=== PATIENT | male | born 1940 | race Caucasian/White ===

== ENCOUNTER 2016-08-16 19:07 | Emergency (ER) | payer MEDICARE, BC ==
[2016-08-16 20:24] LABS: HEMATOCRIT 41.7 % (42.0-52.0); HEMOGLOBIN 13.3 gm/dl (14.0-18.0); MEAN CELL VOLUME 94.3 fl (81-97); MEAN CORPUSCULAR HGB CONC 31.9 g/dl (32-36); MEAN PLATELET VOLUME 9.1 fl (7.4-10.4); PLATELET COUNT 182 K/uL (130-400); RED BLOOD COUNT 4.42 M/uL (4.40-5.70); WHITE BLOOD COUNT W/O DIFF 11.6 K/uL (4.2-12.2)
[2016-08-16 20:34] LABS: ANION GAP 7.4 (7-16); BLOOD UREA NITROGEN 31 mg/dL (9-20); CARBON DIOXIDE 26.6 mmol/L (22-30); EST GLOMERULAR FILTRATION RATE > 60 ml/min; GLUCOSE,RANDOM 126 mg/dL (70-110); INR 4.29
[2016-08-16 20:36] LABS: PROTHROMBIN TIME (PATIENT) 48.5 SECONDS (9.5-12.1)
[2016-08-16 20:50] LABS: TROPONIN I < 0.012 ng/mL (0.00-0.034)
[2016-08-16] MEDS: IPRATROPIUM/ALBUTEROL (0.5MG/3MG) NEB INH ONE (21:11)
--- NOTE | 2016-08-16 21:54 | Emergency Department Record ---
History of Present Illness - General Chief Complaint: Cough Stated Complaint: NICOLAS/CHEST CONGESTION/COUGH Time Seen by Provider: 08/16/16 19:47 Source: Patient Mode of Arrival: Ambulatory Limitations: No limitations - History of Present Illness Initial Comments: pt has been sick for 2 weeks and has been to see dr ko. he had a course of zithromax and levaquin. he continues to cough and feels gurgly at times. no fever. his cough is productive and is now clear MD Complaint: Cough, Nasal congestion Onset/Timin -: Week(s) Severity: Mild Consistency: Other Context: Sick contacts Associated Symptoms: Cough, Nasal congestion, Shortness of breath Treatments Prior to Arrival: Antibiotics, "Cold medicine" - Related Data Home Medications Medication Instructions Recorded Confirmed Last Taken Finasteride [Proscar] 5 mg PO DAILY 03/16/14 08/16/16 01/06/16 Potassium Chloride [Klor-Con M20] 20 meq PO DAILY 03/16/14 08/16/16 01/06/16 Tamsulosin HCl [Flomax] 0.4 mg PO DAILY 03/16/14 08/16/16 01/06/16 Warfarin Sodium [Coumadin] 2 mg PO DAILY 03/16/14 08/16/16 01/06/16 Albuterol Sulfate [Proair Hfa] 1 - 2 puff IH .EVERY 4-6 HOURS PRN 09/17/1408/1601/06/16 Ipratropium/Albuterol [Duoneb] 3 ml IH Q4H PRN 10/17/14 08/16/16 01/06/16 Ascorbic Acid [Vitamin C] 500 mg PO DAILY 05/01/15 08/16/16 01/06/16 Amitriptyline HCl 25 mg PO BID 01/07/16 08/16/16 01/06/16 Azithromycin [Azithromycin] 1 tab PO ASDIR 08/16/16 08/16/16 Unknown Cholecalciferol (Vitamin D3) 40 unit PO DAILY 08/16/16 08/16/16 Unknown [Vitamin D3] Cyanocobalamin (Vitamin B-12) 1 tab PO DAILY 08/16/16 08/16/16 Unknown [Vitamin B-12] Diltiazem HCl [Cardizem Cd] 240 mg PO QPM 08/16/16 08/16/16 Unknown Fluticasone Propionate [Flovent 100 mcg IH ASDIR 08/16/16 08/16/16 Unknown Diskus] Furosemide [Lasix] 20 mg PO BID 08/16/16 08/16/16 Unknown Levofloxacin [Levaquin Tab] 1 tab PO ASDIR 08/16/16 08/16/16 Unknown Multivitamin [Daily Multiple 1 each PO DAILY 08/16/16 08/16/16 Unknown Vitamin] Prednisone [Prednisone] 1 tab PO ASDIR 08/16/16 08/16/16 Unknown Previous Rx's Medication Instructions Recorded Benzonatate [Tessalon] 1 cap PO Q8H PRN #10 cap 08/16/16 Allergies Allergy/AdvReac Type Severity Reaction Status Date / Time meperidine HCl [From Demerol] Allergy SWELLING Verified 01/07/16 00:50 (GENERAL) Penicillins Allergy RASH Verified 01/07/16 00:50 codeine AdvReac BODY ACHES Verified 01/07/16 00:50 Tetanus Vaccines and Toxoid AdvReac BODY ACHES Verified 01/07/16 00:50 [Tetanus Vaccines & Toxoid] Travel Screening - Travel/Exposure Within Last 30 Days Have you traveled within the last 30 days?: No - Travel/Exposure Within Last Year Have you traveled outside the [place] in the last year?: No - Additonal Travel Details Have you been exposed to anyone with a communicable illness?: No - Travel Symptoms Symptom Screening: None Review of Systems Reviewed: No additional complaints except as noted below Constitutional: Reports: As per HPI. Denies: Chills, Fever, Malaise, Night sweats, Weakness, Weight change Eyes: Reports: As per HPI. Denies: Eye discharge, Eye pain, Photophobia, Vision change ENT: Reports: As per HPI. Denies: Congestion, Dental pain, Ear pain, Epistaxis , Hearing loss, Throat pain Respiratory: Reports: As per HPI. Denies: Cough, Dyspnea, Hemoptysis, Stridor, Wheezes Cardiovascular: Reports: As per HPI. Denies: Arrhythmia, Chest pain, Dyspnea on exertion, Edema, Murmurs, Orthopnea, Palpitations, Paroxysmal nocturnal dyspnea, Rheumatic Fever, Syncope Endocrine: Reports: As per HPI. Denies: Fatigue, Heat or cold intolerance, Polydipsia, Polyuria Gastrointestinal: Reports: As per HPI. Denies: Abdominal pain, Constipation, Diarrhea, Hematemesis, Hematochezia, Melena, Nausea, Vomiting Genitourinary: Reports: As per HPI. Denies: Dysuria, Frequency, Hematuria, Incontinence, Retention, Testicular pain, Testicular mass, Urgency Musculoskeletal: Reports: As per HPI. Denies: Arthralgia, Back pain, Gout, Joint swelling, Myalgia, Neck pain Skin: Reports: As per HPI. Denies: Bruising, Change in color, Change in hair/ nails, Lesions, Pruritus, Rash Neurological: Reports: As per HPI. Denies: Abnormal gait, Confusion, Headache, Numbness, Paresthesias, Seizure, Tingling, Tremors, Vertigo, Weakness Psychiatric: Reports: As per HPI. Denies: Anxiety, Auditory hallucinations, Depression, Homicidal thoughts, Suicidal thoughts, Visual hallucinations Hematological/Lymphatic: Reports: As per HPI. Denies: Anemia, Blood Clots, Easy bleeding, Easy bruising, Swollen glands Past Medical History - SOCIAL HISTORY Smoking Status: Former smoker Alcohol Use: None Drug Use: None - RESPIRATORY Hx Respiratory Disorders: Yes Hx Bronchitis: Yes Hx COPD: Yes Hx Pneumonia: Yes - CARDIOVASCULAR Hx Cardio Disorders: Yes Hx Abnormal EKG: Yes Hx Cardiac Cath: Yes Hx CHF: Yes Hx Heart Attack: Yes (after his stroke) Hx Hypotension: Yes Hx Irregular Heartbeat: Yes (A fib) Comment:: cardiac stents placed AND CURRENTLY ON COUMADIN - NEURO Hx Neuro Disorders: Yes Hx CVA: Yes (2003) Hx Weakness: Yes (LEFT SIDED WEAKNESS WITH SOME IMPROVEMENT AFTER) Comment:: WALKS WITH CANE - GI Hx GI Disorders: Yes Hx Reflux: Yes Hx of Polyps: Yes (POLYPS BENIGN) Comment:: STATES HAD BX DURING EGD AND HAD BLEED - Hx Genitourinary Disorders: Yes Hx Bladder Problem: Yes (UNABLE TO VOID) Comment:: INTERMITTENT ISSUES WITH INABILITY TO VOID FOR LAST SEVERAL MONTHS - ENDOCRINE Hx Endocrine Disorders: No - MUSCULOSKELETAL Hx Musculoskeletal Disorders: Yes Hx Arthritis: Yes - PSYCH Hx Psych Problems: Yes Hx Anxiety: Yes Hx Depression: Yes - HEMATOLOGY/ONCOLOGY Hx Hematology/Oncology Disorders: Yes Hx Clotting Problems: Yes (TAKES COUMADIN) Hx Blood Transfusions: Yes Hx Blood Transfusion Reaction: No Family Medical History Any Significant Family History?: Yes Hx Alcohol Use: Father, Grandparents Hx Heart Disease: Mother, Brother/Sister Hx Stroke: Father Physical Exam - General General Appearance: Alert, Oriented x3, Cooperative, Mild distress - Head Head exam: Normal inspection - Eye Eye exam: Normal appearance, PERRL, EOMI Pupils: Normal accommodation - ENT ENT exam: Normal exam, Mucous membranes moist, Normal external ear exam, Normal orophraynx Ear exam: Normal external inspection. negative: External canal tenderness Nasal Exam: Normal inspection. negative: Discharge, Sinus tenderness Mouth exam: Normal external inspection, Tongue normal Teeth exam: Normal inspection. negative: Dental caries Throat exam: Normal inspection. negative: Tonsillar erythema, Tonsillar exudate - Neck Neck exam: Normal inspection, Full ROM. negative: Tenderness - Respiratory Respiratory exam: Normal lung sounds bilaterally. negative: Respiratory distress - Cardiovascular Cardiovascular Exam: Regular rate, Normal rhythm, Normal heart sounds - GI/Abdominal GI/Abdominal exam: Soft, Normal bowel sounds. negative: Tenderness - Rectal Rectal exam: Deferred - exam: Deferred - Extremities Extremities exam: Normal inspection, Full ROM, Normal capillary refill. negative: Tenderness - Back Back exam: Reports: Normal inspection, Full ROM. Denies: Muscle spasm, Rash noted, Tenderness - Neurological Neurological exam: Alert, CN II-XII intact, Normal gait, Oriented X3 - Psychiatric Psychiatric exam: Normal affect, Normal mood - Skin Skin exam: Dry, Intact, Normal color, Warm Course Vital Signs 08/16/16 08/16/16 08/16/16 19:25 20:52 21:12 Temperature 97.5 F L Pulse Rate 88 Pulse Rate [ 86 82 Pulse Ox Probe] Respiratory 20 20 28 H Rate Blood Pressure 136/78 125/74 [Left Arm] Pulse Ox 96 95 Medical Decision Making - Management Options MDM Management: No Additional Work-up Planned - Data Complexity MDM Data: Labs Ordered and/or Reviewed, X-Ray Ordered and/or Reviewed - Lab Data Result diagrams: 08/16/16 20:15 08/16/16 20:15 Lab Results 08/16/16 08/16/16 08/16/16 Range/Units 20:15 20:15 20:15 WBC 11.6 (4.2-12.2) K/uL RBC 4.42 (4.40-5.70) M/uL Hgb 13.3 L (14.0-18.0) gm/dl Hct 41.7 L (42.0-52.0) % MCV 94.3 (81-97) fl MCH 30.0 (27-33) pg MCHC 31.9 L (32-36) g/dl RDW 15.0 H (11.5-14.5) % Plt Count 182 (130-400) K/uL MPV 9.1 (7.4-10.4) fl Neutrophils % 83.0 H (47-80) % Band Neutrophils % 0.0 (0-5) % Lymphocytes % 11.0 L (16-45) % Monocytes % 6.0 (0-9) % Eosinophils % 0.0 (0-6) % Basophils % 0.0 (0-6) % PT 48.5 H (9.5-12.1) SECONDS INR 4.29 Sodium 134 L (136-145) mmol/L Potassium 4.5 (3.5-5.1) mmol/L Chloride 100 (98-107) mmol/L Carbon Dioxide 26.6 (22-30) mmol/L Anion Gap 7.4 (7-16) BUN 31 H (9-20) mg/dL Creatinine 1.0 (0.66-1.25) mg/dL Estimated GFR > 60 ml/min Random Glucose 126 H (70-110) mg/dL Calcium 8.3 L (8.5-10.1) mg/dL Troponin I (0.00-0.034) ng/mL NT-Pro-B Natriuret Pep (<450) pg/mL 08/16/16 Range/Units 20:15 WBC (4.2-12.2) K/uL RBC (4.40-5.70) M/uL Hgb (14.0-18.0) gm/dl Hct (42.0-52.0) % MCV (81-97) fl MCH (27-33) pg MCHC (32-36) g/dl RDW (11.5-14.5) % Plt Count (130-400) K/uL MPV (7.4-10.4) fl Neutrophils % (47-80) % Band Neutrophils % (0-5) % Lymphocytes % (16-45) % Monocytes % (0-9) % Eosinophils % (0-6) % Basophils % (0-6) % PT (9.5-12.1) SECONDS INR Sodium (136-145) mmol/L Potassium (3.5-5.1) mmol/L Chloride (98-107) mmol/L Carbon Dioxide (22-30) mmol/L Anion Gap (7-16) BUN (9-20) mg/dL Creatinine (0.66-1.25) mg/dL Estimated GFR ml/min Random Glucose (70-110) mg/dL Calcium (8.5-10.1) mg/dL Troponin I < 0.012 (0.00-0.034) ng/mL NT-Pro-B Natriuret Pep 736.00 H (<450) pg/mL - Radiology Data Radiology results: Report reviewed, Image reviewed Disposition Disposition: Discharge Clinical Impression: Bronchitis, Elevated INR (international normalized ratio) due to prior anticoagulant medication ingestion Disposition: Home, Self-Care Condition: (1) Good Instructions: Acute Bronchitis (ED), Elevated INR (ED) Additional Instructions: follow up with dr ko in the morning. do not take coumadin tonight. check with dr ko in the morning. take care not to fall Prescriptions: Benzonatate [Tessalon] 1 cap PO Q8H PRN #10 cap PRN Reason: Cough Forms: Patient Portal Access
== END 2016-08-16 22:09 | disposition home or self-care (01) ==
LOC: ER 19:07
DX: J20.9 Acute bronchitis, unspecified (principal); R79.1 Abnormal coagulation profile; R06.02 Shortness of breath; I48.91 Unspecified atrial fibrillation; Z79.01 Long term (current) use of anticoagulants; I69.954 Hemiplegia and hemiparesis following unspecified cerebrovascular disease affecting left non-dominant side; I10 Essential (primary) hypertension; J44.9 Chronic obstructive pulmonary disease, unspecified; Z87.891 Personal history of nicotine dependence
CPT/HCPCS: 71020; 80048; 83880; 84484; 85027; 85610; 94640; 99283; 99284

== ENCOUNTER 2016-10-07 13:06 | Emergency (ER) | payer MEDICARE, BC ==
[2016-10-07] MEDS ORDERED: TOPICAL LIDOCAINE W/ EPI 5 ML TOP ONE (13:37)
--- NOTE | 2016-10-07 13:41 | Emergency Department Record ---
History of Present Illness - General Chief Complaint: Laceration(s) Stated Complaint: BACK OF LT HAND LACERATION Time Seen by Provider: 10/07/16 13:37 Source: Patient, Family Mode of Arrival: Ambulatory Limitations: No limitations - History of Present Illness Initial Commments: 75 yo male presents after a fall injuring his left hand. He was moving a heavy urn and tripped falling onto the left hand. He has some left hand pain and some skin tears. No other injuries. No head injury. He is able to move the hand through a full ROM. Onset/Timin -: Hour(s) Extremity Location: Left: Hand Place: Home, Outdoors Context: Accidental, Fall Associated Symptoms: None Treatments Prior to Arrival: Bandage - Steven Coma Scale Eye Response: (4) Open spontaneously Motor Response: (6) Obeys commands Verbal Response: (5) Oriented [place] Total: 15 - Related Data Hx Tetanus Toxoid Vaccination: No (allergy) Home Medications Medication Instructions Recorded Confirmed Last Taken Finasteride [Proscar] 5 mg PO DAILY 03/16/14 10/07/16 01/06/16 Tamsulosin HCl [Flomax] 0.4 mg PO DAILY 03/16/14 10/07/16 01/06/16 Warfarin Sodium [Coumadin] 2 mg PO DAILY 03/16/14 10/07/16 01/06/16 Albuterol Sulfate [Proair Hfa] 1 - 2 puff IH .EVERY 4-6 HOURS PRN 09/17/1410/0701/06/16 Ipratropium/Albuterol [Duoneb] 3 ml IH Q4H PRN 10/17/14 10/07/16 01/06/16 Ascorbic Acid [Vitamin C] 500 mg PO DAILY 05/01/15 10/07/16 01/06/16 Amitriptyline HCl 25 mg PO BID 01/07/16 10/07/16 01/06/16 Cholecalciferol (Vitamin D3) 40 unit PO DAILY 08/16/16 10/07/16 Unknown [Vitamin D3] Cyanocobalamin (Vitamin B-12) 1 tab PO DAILY 08/16/16 10/07/16 Unknown [Vitamin B-12] Diltiazem HCl [Cardizem Cd] 240 mg PO QPM 08/16/16 10/07/16 Unknown Fluticasone Propionate [Flovent 100 mcg IH ASDIR 08/16/16 10/07/16 Unknown Diskus] Furosemide [Lasix] 20 mg PO BID 08/16/16 10/07/16 Unknown Multivitamin [Daily Multiple 1 each PO DAILY 08/16/16 10/07/16 Unknown Vitamin] Prednisone [Prednisone] 1 tab PO ASDIR 08/16/16 10/07/16 Unknown Allergies Allergy/AdvReac Type Severity Reaction Status Date / Time meperidine HCl [From Demerol] Allergy SWELLING Verified 01/07/16 00:50 (GENERAL) Penicillins Allergy RASH Verified 01/07/16 00:50 codeine AdvReac BODY ACHES Verified 01/07/16 00:50 Tetanus Vaccines and Toxoid AdvReac BODY ACHES Verified 01/07/16 00:50 [Tetanus Vaccines & Toxoid] Travel Screening - Travel/Exposure Within Last 30 Days Have you traveled within the last 30 days?: No Review of Systems Constitutional: Denies: Chills, Fever, Malaise, Weakness Eyes: Denies: Eye discharge ENT: Denies: Congestion, Throat pain Respiratory: Denies: Cough Cardiovascular: Denies: Chest pain, Syncope Endocrine: Denies: Fatigue Gastrointestinal: Denies: Abdominal pain, Diarrhea, Nausea, Vomiting Genitourinary: Denies: Dysuria, Frequency, Hematuria Musculoskeletal: Reports: Arthralgia Skin: Reports: As per HPI, Other (skin tear) Neurological: Denies: Headache Psychiatric: Denies: Anxiety Hematological/Lymphatic: Denies: Blood Clots, Easy bleeding, Easy bruising, Swollen glands Past Medical History - SOCIAL HISTORY Smoking Status: Former smoker Alcohol Use: None Drug Use: None - RESPIRATORY Hx Respiratory Disorders: Yes Hx Bronchitis: Yes Hx COPD: Yes Hx Pneumonia: Yes - CARDIOVASCULAR Hx Cardio Disorders: Yes Hx Abnormal EKG: Yes Hx Cardiac Cath: Yes Hx CHF: Yes Hx Heart Attack: Yes (after his stroke) Hx Hypotension: Yes Hx Irregular Heartbeat: Yes (A fib) Comment:: cardiac stents placed AND CURRENTLY ON COUMADIN - NEURO Hx Neuro Disorders: Yes Hx CVA: Yes (2003) Hx Weakness: Yes (LEFT SIDED WEAKNESS WITH SOME IMPROVEMENT AFTER) Comment:: WALKS WITH CANE - GI Hx GI Disorders: Yes Hx Reflux: Yes Hx of Polyps: Yes (POLYPS BENIGN) Comment:: STATES HAD BX DURING EGD AND HAD BLEED - Hx Genitourinary Disorders: Yes Hx Bladder Problem: Yes (UNABLE TO VOID) Comment:: INTERMITTENT ISSUES WITH INABILITY TO VOID FOR LAST SEVERAL MONTHS - ENDOCRINE Hx Endocrine Disorders: No - MUSCULOSKELETAL Hx Musculoskeletal Disorders: Yes Hx Arthritis: Yes - PSYCH Hx Psych Problems: Yes Hx Anxiety: Yes Hx Depression: Yes - HEMATOLOGY/ONCOLOGY Hx Hematology/Oncology Disorders: Yes Hx Clotting Problems: Yes (TAKES COUMADIN) Hx Blood Transfusions: Yes Hx Blood Transfusion Reaction: No Family Medical History Any Significant Family History?: Yes Hx Alcohol Use: Father, Grandparents Hx Heart Disease: Mother, Brother/Sister Hx Stroke: Father Physical Exam - General General Appearance: Alert, Oriented x3, Cooperative, No acute distress Limitations: No limitations - Head Head exam: Atraumatic, Normocephalic, Normal inspection - Eye Eye exam: Normal appearance, PERRL. negative: Conjunctival injection, Periorbital swelling - ENT ENT exam: Normal exam, Mucous membranes moist Ear exam: Normal external inspection Nasal Exam: Normal inspection Mouth exam: Normal external inspection - Neck Neck exam: Normal inspection, Full ROM. negative: Tenderness - Respiratory Respiratory exam: Normal lung sounds bilaterally. negative: Accessory muscle use, Respiratory distress - Cardiovascular Cardiovascular Exam: Regular rate, Normal rhythm, Normal heart sounds Peripheral Pulses: 2+: Radial (L) - GI/Abdominal GI/Abdominal exam: Soft. negative: Tenderness - Rectal Rectal exam: Deferred - exam: Deferred - Extremities Extremities exam: Full ROM, Normal capillary refill, Tenderness. negative: Normal inspection Image of Hand: 1 - skin tear 2 - skin tear - Back Back exam: Denies: CVA tenderness (R), CVA tenderness (L), Tenderness - Neurological Neurological exam: Alert, Oriented X3 - Psychiatric Psychiatric exam: Normal affect, Normal mood. negative: Agitated, Anxious - Skin Skin exam: Dry, Intact, Normal color, Warm Course Vital Signs 10/07/16 13:15 Temperature 98.2 F Pulse Rate [ 82 Pulse Ox Probe] Respiratory 20 Rate Blood Pressure 119/78 [Left Arm] Pulse Ox 96 - Reevaluation(s) Reevaluation #1: The wounds were clean copiously with NS The XR was reviewed by me. No acute displaced fx seen The two skin tears were re-approximated with steristrips with good approximation The hand was dressed We discussed follow up and home care. He is to call Dr Wen this week for a recheck. 10/07/16 14:36 Disposition Disposition: Discharge Clinical Impression: Skin tear Contusion of hand, left Qualifiers: Encounter type: initial encounter Qualified Code(s): S60.222A - Contusion of left hand, initial encounter Disposition: Home, Self-Care Condition: (1) Good Instructions: Skin Tear (ED), Steristrips (ED) Additional Instructions: Call Dr Wen for close follow up this week to evaluate the progress of healing of your skin tears. Return to the ER if you have any concerns about the healing or signs of infection Forms: Patient Portal Access Time of Disposition: 14:38
== END 2016-10-07 15:10 | disposition home or self-care (01) ==
LOC: ER 13:06
DX: S61.412A Laceration without foreign body of left hand, initial encounter (principal); S60.222A Contusion of left hand, initial encounter; W01.0XXA Fall on same level from slipping, tripping and stumbling without subsequent striking against object, initial encounter; Y92.007 Garden or yard of unspecified non-institutional (private) residence as the place of occurrence of the external cause
CPT/HCPCS: 99283

== ENCOUNTER 2016-10-09 10:09 | Emergency (ER) | payer MEDICARE, BC ==
[2016-10-09] MEDS ORDERED: CLINDAMYCIN 150 MG CAP PO ONE (10:45)
--- NOTE | 2016-10-09 10:51 | Emergency Department Record ---
History of Present Illness - General Chief complaint: Extremity Problem Stated complaint: L HAND INFECTION Time Seen by Provider: 10/09/16 10:45 Source: Patient Mode of Arrival: Ambulatory Limitations: No limitations - History of Present Illness Initial comments: 75 yo male presents with a concern about some swelling after an injury. He fell and had skin tears. He had an XR that was negative. His skin tears were cleaned and steri stripped. No fever. No streaking redness. No significant pain. No pus. Mild swelling and redness are his concerns MD Complaint: Extremity swelling Onset/Timin -: Days(s) Location: Left, Hand History of Same: Yes Severity scale (1-10): 8 Quality: Aching Consistency: Constant - Related Data Home Medications Medication Instructions Recorded Confirmed Last Taken Finasteride [Proscar] 5 mg PO DAILY 03/16/14 10/09/16 1 Day Ago ~10/08/16 Tamsulosin HCl [Flomax] 0.4 mg PO DAILY 03/16/14 10/09/16 1 Day Ago ~10/08/16 Warfarin Sodium [Coumadin] 2 mg PO DAILY 03/16/14 10/09/16 1 Day Ago ~10/08/16 Albuterol Sulfate [Proair Hfa] 1 - 2 puff IH .EVERY 4-6 HOURS PRN 09/17/1410/09 1 Day Ago ~10/08/16 Ipratropium/Albuterol [Duoneb] 3 ml IH Q4H PRN 10/17/14 10/09/16 1 Day Ago ~10/08/16 Ascorbic Acid [Vitamin C] 500 mg PO DAILY 05/01/15 10/09/16 1 Day Ago ~10/08/16 Amitriptyline HCl 25 mg PO BID 01/07/16 10/09/16 1 Day Ago ~10/08/16 Cholecalciferol (Vitamin D3) 40 unit PO DAILY 08/16/16 10/09/16 1 Day Ago [Vitamin D3] ~10/08/16 Cyanocobalamin (Vitamin B-12) 1 tab PO DAILY 08/16/16 10/09/16 1 Day Ago [Vitamin B-12] ~10/08/16 Diltiazem HCl [Cardizem Cd] 240 mg PO QPM 08/16/16 10/09/16 1 Day Ago ~10/08/16 Fluticasone Propionate [Flovent 100 mcg IH ASDIR 08/16/16 10/09/16 1 Day Ago Diskus] ~10/08/16 Furosemide [Lasix] 20 mg PO BID 08/16/16 10/09/16 1 Day Ago ~10/08/16 Multivitamin [Daily Multiple 1 each PO DAILY 08/16/16 10/09/16 1 Day Ago Vitamin] ~10/08/16 Prednisone [Prednisone] 1 tab PO ASDIR 08/16/16 10/09/16 1 Day Ago ~10/08/16 Previous Rx's Medication Instructions Recorded Clindamycin HCl [Cleocin HCl] 300 mg PO TID #21 capsule 10/09/16 Allergies Allergy/AdvReac Type Severity Reaction Status Date / Time meperidine HCl [From Demerol] Allergy SWELLING Verified 10/09/16 10:44 (GENERAL) Penicillins Allergy RASH Verified 10/09/16 10:44 codeine AdvReac BODY ACHES Verified 10/09/16 10:44 Tetanus Vaccines and Toxoid AdvReac BODY ACHES Verified 10/09/16 10:44 [Tetanus Vaccines & Toxoid] Travel Screening - Travel/Exposure Within Last 30 Days Have you traveled within the last 30 days?: No - Travel/Exposure Within Last Year Have you traveled outside the [place] in the last year?: No - Additonal Travel Details Have you been exposed to anyone with a communicable illness?: No Review of Systems Constitutional: Denies: Chills, Fever, Weakness ENT: Denies: Congestion, Throat pain Respiratory: Denies: Cough Cardiovascular: Denies: Chest pain, Syncope Endocrine: Denies: Fatigue Gastrointestinal: Denies: Abdominal pain, Diarrhea, Nausea, Vomiting Genitourinary: Denies: Frequency, Hematuria Musculoskeletal: Reports: As per HPI, Arthralgia, Joint swelling Skin: Reports: As per HPI, Change in color Neurological: Denies: Headache Psychiatric: Denies: Anxiety Hematological/Lymphatic: Denies: Blood Clots, Easy bleeding, Easy bruising, Swollen glands Past Medical History - SOCIAL HISTORY Smoking Status: Former smoker - RESPIRATORY Hx Respiratory Disorders: Yes Hx Bronchitis: Yes Hx COPD: Yes Hx Pneumonia: Yes - CARDIOVASCULAR Hx Cardio Disorders: Yes Hx Abnormal EKG: Yes Hx Cardiac Cath: Yes Hx CHF: Yes Hx Heart Attack: Yes (after his stroke) Hx Hypotension: Yes Hx Irregular Heartbeat: Yes (A fib) Comment:: cardiac stents placed AND CURRENTLY ON COUMADIN - NEURO Hx Neuro Disorders: Yes Hx CVA: Yes (2003) Hx Weakness: Yes (LEFT SIDED WEAKNESS WITH SOME IMPROVEMENT AFTER) Comment:: WALKS WITH CANE - GI Hx GI Disorders: Yes Hx Reflux: Yes Hx of Polyps: Yes (POLYPS BENIGN) Comment:: STATES HAD BX DURING EGD AND HAD BLEED - Hx Genitourinary Disorders: Yes Hx Bladder Problem: Yes (UNABLE TO VOID) Comment:: INTERMITTENT ISSUES WITH INABILITY TO VOID FOR LAST SEVERAL MONTHS - ENDOCRINE Hx Endocrine Disorders: No - MUSCULOSKELETAL Hx Musculoskeletal Disorders: Yes Hx Arthritis: Yes - PSYCH Hx Psych Problems: Yes Hx Anxiety: Yes Hx Depression: Yes - HEMATOLOGY/ONCOLOGY Hx Hematology/Oncology Disorders: Yes Hx Clotting Problems: Yes (TAKES COUMADIN) Hx Blood Transfusions: Yes Hx Blood Transfusion Reaction: No Family Medical History Any Significant Family History?: Yes Hx Alcohol Use: Father, Grandparents Hx Heart Disease: Mother, Brother/Sister Hx Stroke: Father Physical Exam - General General Appearance: Alert, Oriented x3, Cooperative, No acute distress Limitations: No limitations - Head Head exam: Normal inspection - Eye Eye exam: Normal appearance, PERRL. negative: Conjunctival injection, Periorbital swelling - ENT ENT exam: Normal exam Ear exam: Normal external inspection Nasal Exam: Normal inspection - Neck Neck exam: Normal inspection - Cardiovascular Cardiovascular Exam: Regular rate, Normal rhythm, Normal heart sounds - Rectal Rectal exam: Deferred - exam: Deferred - Extremities Extremities exam: Full ROM, Normal capillary refill. negative: Normal inspection, Tenderness Image of Hand: 1 - steri strips intact, very mild swelling and very mild erythema with some bruising, full ROM, no streaking erythema, no pus - Neurological Neurological exam: Alert, Oriented X3 - Psychiatric Psychiatric exam: Normal affect, Normal mood - Skin Skin exam: Erythema Course Vital Signs 10/09/16 10:37 Temperature 97.4 F L Pulse Rate 82 Respiratory 20 Rate Blood Pressure 115/69 Pulse Ox 96 - Reevaluation(s) Reevaluation #1: 10/09/16 10:50Mild findings on today's examination may represent early very mild infection Clindamycin provided Disposition Disposition: Discharge Clinical Impression: Cellulitis Qualifiers: Site of cellulitis: extremity Site of cellulitis of extremity: upper extremity Laterality: left Qualified Code(s): L03.114 - Cellulitis of left upper limb Disposition: Home, Self-Care Condition: (1) Good Instructions: Cellulitis (ED) Additional Instructions: Elevate to minimize swelling Followup with Dr Wen this week for a recheck Return if fever, pain, increased swelling or redness Prescriptions: Clindamycin HCl [Cleocin HCl] 300 mg PO TID #21 capsule Forms: Patient Portal Access Time of Disposition: 10:52
== END 2016-10-09 11:09 | disposition home or self-care (01) ==
LOC: ER 10:09
DX: L03.114 Cellulitis of left upper limb (principal)
CPT/HCPCS: 99282

== ENCOUNTER 2017-02-14 10:23 | Emergency (ER) | payer MEDICARE, BC ==
[2017-02-14] MEDS ORDERED: ASPIRIN 81 MG CHEWABLE TABLET PO ONE (10:35)
[2017-02-14] MEDS ORDERED: METHYLPREDNISOLONE PF 125MG/VIAL IVP ONE (10:39)
[2017-02-14] MEDS ORDERED: IPRATROPIUM/ALBUTEROL (0.5MG/3MG) NEB INH ONE (10:39)
--- NOTE | 2017-02-14 10:41 | Emergency Department Record ---
History of Present Illness - General Chief Complaint: Shortness of breath Stated Complaint: NICOLAS Time Seen by Provider: 02/14/17 10:33 Source: Patient, RN notes reviewed Mode of Arrival: Ambulatory - History of Present Illness Initial Comments: sob and cough for couple of days and much worse at 2 am adn the duoneb treatment than didn't help. coughing up yellow sputum Complaint: Shortness of breath - Related Data Home Medications Medication Instructions Recorded Confirmed Last Taken Cilostazol 50 mg PO BID 02/14/17 02/14/17 02/13/17 Potassium Chloride [Klor-Con] 20 meq PO DAILY 02/14/17 02/14/17 02/13/17 Previous Rx's Medication Instructions Recorded Azithromycin [Zithromax] 500 mg PO DAILY #7 tab 02/14/17 Cephalexin [Keflex] 500 mg PO QID #40 cap 02/14/17 Prednisone [Prednisone 10Mg] 10 mg PO ASDIR #30 tab 02/14/17 Allergies Allergy/AdvReac Type Severity Reaction Status Date / Time meperidine HCl [From Demerol] Allergy SWELLING Verified 10/09/16 10:44 (GENERAL) Penicillins Allergy RASH Verified 10/09/16 10:44 codeine AdvReac BODY ACHES Verified 10/09/16 10:44 Tetanus Vaccines and Toxoid AdvReac BODY ACHES Verified 10/09/16 10:44 [Tetanus Vaccines & Toxoid] Past Medical History - SOCIAL HISTORY Smoking Status: Former smoker - RESPIRATORY Hx Respiratory Disorders: Yes Hx Bronchitis: Yes Hx COPD: Yes Hx Pneumonia: Yes - CARDIOVASCULAR Hx Cardio Disorders: Yes Hx Abnormal EKG: Yes Hx Cardiac Cath: Yes Hx CHF: Yes Hx Heart Attack: Yes (after his stroke) Hx Hypotension: Yes Hx Irregular Heartbeat: Yes (A fib) Comment:: cardiac stents placed AND CURRENTLY ON COUMADIN - NEURO Hx Neuro Disorders: Yes Hx CVA: Yes (2003) Hx Weakness: Yes (LEFT SIDED WEAKNESS WITH SOME IMPROVEMENT AFTER) Comment:: WALKS WITH CANE - GI Hx GI Disorders: Yes Hx Reflux: Yes Hx of Polyps: Yes (POLYPS BENIGN) Comment:: STATES HAD BX DURING EGD AND HAD BLEED - Hx Genitourinary Disorders: Yes Hx Bladder Problem: Yes (UNABLE TO VOID) Comment:: INTERMITTENT ISSUES WITH INABILITY TO VOID FOR LAST SEVERAL MONTHS - ENDOCRINE Hx Endocrine Disorders: No - MUSCULOSKELETAL Hx Musculoskeletal Disorders: Yes Hx Arthritis: Yes - PSYCH Hx Psych Problems: Yes Hx Anxiety: Yes Hx Depression: Yes - HEMATOLOGY/ONCOLOGY Hx Hematology/Oncology Disorders: Yes Hx Clotting Problems: Yes (TAKES COUMADIN) Hx Blood Transfusions: Yes Hx Blood Transfusion Reaction: No Family Medical History Hx Alcohol Use: Father, Grandparents Hx Heart Disease: Mother, Brother/Sister Hx Stroke: Father Physical Exam - General General Appearance: Alert, Oriented x3, Cooperative, No acute distress - Head Head exam: Normal inspection - Eye Eye exam: Normal appearance, PERRL Pupils: Normal accommodation - ENT ENT exam: Normal exam, Mucous membranes moist, Normal external ear exam, Normal orophraynx, TM's normal bilaterally Ear exam: Normal external inspection. negative: External canal tenderness Nasal Exam: Normal inspection. negative: Discharge, Sinus tenderness Mouth exam: Normal external inspection, Tongue normal Teeth exam: Normal inspection. negative: Dental caries Throat exam: Normal inspection. negative: Tonsillar erythema, Tonsillar exudate - Neck Neck exam: Normal inspection, Full ROM. negative: Tenderness - Respiratory Respiratory exam: Rales, Wheezes. negative: Respiratory distress - Cardiovascular Cardiovascular Exam: Regular rate, Normal rhythm, Normal heart sounds - GI/Abdominal GI/Abdominal exam: Soft, Normal bowel sounds. negative: Tenderness - Rectal Rectal exam: Deferred - exam: Deferred - Extremities Extremities exam: Normal inspection, Full ROM, Normal capillary refill. negative: Tenderness - Back Back exam: Reports: Normal inspection, Full ROM. Denies: Muscle spasm, Rash noted, Tenderness - Neurological Neurological exam: Alert, Normal gait, Oriented X3, Reflexes normal - Psychiatric Psychiatric exam: Normal affect, Normal mood - Skin Skin exam: Dry, Intact, Normal color, Warm Medical Decision Making - Lab Data Result diagrams: 02/14/17 10:41 02/14/17 10:41 Disposition Clinical Impression: Bronchitis, COPD exacerbation Atrial fibrillation Qualifiers: Atrial fibrillation type: chronic Qualified Code(s): I48.2 - Chronic atrial fibrillation Disposition: Home, Self-Care Condition: (1) Good Instructions: Acute Bronchitis (ED), COPD (Chronic Obstructive Pulmonary Disease) (ED) Additional Instructions: continue home meds and take azithromycin follow up with Dr. Wen tomorrow at 10 :00 am Prescriptions: Azithromycin [Zithromax] 500 mg PO DAILY #7 tab Cephalexin [Keflex] 500 mg PO QID #40 cap Prednisone [Prednisone 10Mg] 10 mg PO ASDIR #30 tab Forms: Patient Portal Access Quality - Quality Measures Quality Measures: N/A - Blood Pressure Screening Does Patient Have Any of the Following: No Blood Pressure Classification: Pre-Hypertensive BP Reading Systolic Measurement: 131 Diastolic Measurement: 68 Screening for High Blood Pressure: < Pre-Hypertensive BP, F/U Documented > [ G8950] Pre-Hypertensive Follow-up Interventions: Referral to alternative/primary care provider.
[2017-02-14] MEDS ORDERED: FUROSEMIDE IV 40MG/4ML VIAL IVP ONE (10:59)
[2017-02-14 11:02] LABS: HEMATOCRIT 42.1 % (42.0-52.0); HEMOGLOBIN 13.7 gm/dl (14.0-18.0); MEAN CELL VOLUME 88.6 fl (81-97); MEAN CORPUSCULAR HEMOGLOBIN 28.8 pg (27-33); MEAN CORPUSCULAR HGB CONC 32.5 g/dl (32-36); MEAN PLATELET VOLUME 9.3 fl (7.4-10.4); PLATELET COUNT 226 K/uL (130-400); RED BLOOD COUNT 4.75 M/uL (4.40-5.70); RED CELL DISTRIBUTION WIDTH 13.3 % (11.5-14.5); WHITE BLOOD COUNT W/O DIFF 7.8 K/uL (4.2-12.2)
[2017-02-14 11:16] LABS: INR 1.97; PARTIAL THROMBOPLASTIN TIME 42.5 SECONDS (24.5-39.1); PROTHROMBIN TIME (PATIENT) 21.4 SECONDS (9.5-12.1)
[2017-02-14 11:17] LABS: BASO % 0.4 % (0-6); EOS % 6.3 % (0-6); GRAN % 66.1 % (47-80); LYMPH % 19.1 % (16-45); MONO % 8.1 % (0-9)
[2017-02-14 11:32] LABS: BLOOD UREA NITROGEN 10 mg/dL (8-23); CKMB 2.3 ng/mL (<6.73); CREATININE 0.9 mg/dL (0.7-1.2); EST GLOMERULAR FILTRATION RATE > 60 mL/min; GLUCOSE,RANDOM 114 mg/dL (74-109); TROPONIN I < 0.30 ng/mL (0.00-0.300)
[2017-02-14] MEDS ORDERED: AZITHROMYCIN 500 MG TABLET PO ONE (12:53)
[2017-02-14] MEDS ORDERED: CEPHALEXIN 500 MG CAPSULE PO STA (12:53)
--- NOTE | 2017-02-14 13:00 | Emergency Department Record ---
History of Present Illness - General Chief Complaint: Shortness of breath Stated Complaint: NICOLAS Time Seen by Provider: 02/14/17 10:33 Source: Patient, RN notes reviewed Mode of Arrival: Ambulatory - History of Present Illness Onset/Timin -: Hour(s) Consistency: Constant Known History Of: COPD, Other Treatments Prior to Arrival: Bronchodilator - Related Data Home Oxygen Therapy: Yes (at night) Home Oxygen Amount: 2 Liters Home Medications Medication Instructions Recorded Confirmed Last Taken Cilostazol 50 mg PO BID 02/14/17 02/14/17 02/13/17 Potassium Chloride [Klor-Con] 20 meq PO DAILY 02/14/17 02/14/17 02/13/17 Previous Rx's Medication Instructions Recorded Azithromycin [Zithromax] 500 mg PO DAILY #7 tab 02/14/17 Cephalexin [Keflex] 500 mg PO QID #40 cap 02/14/17 Prednisone [Prednisone 10Mg] 10 mg PO ASDIR #30 tab 02/14/17 Allergies Allergy/AdvReac Type Severity Reaction Status Date / Time meperidine HCl [From Demerol] Allergy SWELLING Verified 10/09/16 10:44 (GENERAL) Penicillins Allergy RASH Verified 10/09/16 10:44 codeine AdvReac BODY ACHES Verified 10/09/16 10:44 Tetanus Vaccines and Toxoid AdvReac BODY ACHES Verified 10/09/16 10:44 [Tetanus Vaccines & Toxoid] Travel Screening - Travel/Exposure Within Last 30 Days Have you traveled within the last 30 days?: No - Travel/Exposure Within Last Year Have you traveled outside the [place] in the last year?: No - Additonal Travel Details Have you been exposed to anyone with a communicable illness?: No - Travel Symptoms Symptom Screening: None Past Medical History - SOCIAL HISTORY Smoking Status: Former smoker - RESPIRATORY Hx Respiratory Disorders: Yes Hx Bronchitis: Yes Hx COPD: Yes Hx Pneumonia: Yes - CARDIOVASCULAR Hx Cardio Disorders: Yes Hx Abnormal EKG: Yes Hx Cardiac Cath: Yes Hx CHF: Yes Hx Heart Attack: Yes (after his stroke) Hx Hypotension: Yes Hx Irregular Heartbeat: Yes (A fib) Comment:: cardiac stents placed AND CURRENTLY ON COUMADIN - NEURO Hx Neuro Disorders: Yes Hx CVA: Yes (2003) Hx Weakness: Yes (LEFT SIDED WEAKNESS WITH SOME IMPROVEMENT AFTER) Comment:: WALKS WITH CANE - GI Hx GI Disorders: Yes Hx Reflux: Yes Hx of Polyps: Yes (POLYPS BENIGN) Comment:: STATES HAD BX DURING EGD AND HAD BLEED - Hx Genitourinary Disorders: Yes Hx Bladder Problem: Yes (UNABLE TO VOID) Comment:: INTERMITTENT ISSUES WITH INABILITY TO VOID FOR LAST SEVERAL MONTHS - ENDOCRINE Hx Endocrine Disorders: No - MUSCULOSKELETAL Hx Musculoskeletal Disorders: Yes Hx Arthritis: Yes - PSYCH Hx Psych Problems: Yes Hx Anxiety: Yes Hx Depression: Yes - HEMATOLOGY/ONCOLOGY Hx Hematology/Oncology Disorders: Yes Hx Clotting Problems: Yes (TAKES COUMADIN) Hx Blood Transfusions: Yes Hx Blood Transfusion Reaction: No Family Medical History Hx Alcohol Use: Father, Grandparents Hx Heart Disease: Mother, Brother/Sister Hx Stroke: Father Course Vital Signs 02/14/17 02/14/17 02/14/17 10:28 10:40 11:00 Temperature 98.1 F Pulse Rate 94 H 94 H Pulse Rate [ 85 Pulse Ox Probe] Respiratory 20 19 18 Rate Blood Pressure 131/68 Blood Pressure 112/79 [Left Arm] Pulse Ox 96 98 97 - Reevaluation(s) Reevaluation #1: feeling much better and wants to go home 02/14/17 12:55 Medical Decision Making - Lab Data Result diagrams: 02/14/17 10:41 02/14/17 10:41 Lab Results 02/14/17 02/14/17 02/14/17 Range/Units 10:41 10:41 10:41 WBC 7.8 (4.2-12.2) K/uL RBC 4.75 (4.40-5.70) M/uL Hgb 13.7 L (14.0-18.0) gm/dl Hct 42.1 (42.0-52.0) % MCV 88.6 (81-97) fl MCH 28.8 (27-33) pg MCHC 32.5 (32-36) g/dl RDW 13.3 (11.5-14.5) % Plt Count 226 (130-400) K/uL MPV 9.3 (7.4-10.4) fl Gran % 66.1 (47-80) % Neutrophils % Not Reportable Lymphocytes % 19.1 (16-45) % Monocytes % 8.1 (0-9) % Eosinophils % 6.3 H (0-6) % Basophils % 0.4 (0-6) % Lymphocytes Not Reportable Monocytes Not Reportable PT 21.4 H (9.5-12.1) SECONDS INR 1.97 APTT 42.50 H (24.5-39.1) SECONDS Sodium 138 (136-145) mmol/L Potassium 4.2 (3.4-4.5) mmol/L Chloride 100 (98-107) mmol/L Carbon Dioxide 27.0 (22-29) mmol/L Anion Gap 11.0 (7-16) BUN 10 (8-23) mg/dL Creatinine 0.9 (0.7-1.2) mg/dL Estimated GFR > 60 mL/min Random Glucose 114 H (74-109) mg/dL Calcium 9.1 (8.8-10.2) mg/dL CK-MB (CK-2) 2.3 (<6.73) ng/mL Troponin I < 0.30 (0.00-0.300) ng/mL Disposition Clinical Impression: Bronchitis, COPD exacerbation Atrial fibrillation Qualifiers: Atrial fibrillation type: chronic Qualified Code(s): I48.2 - Chronic atrial fibrillation Disposition: Home, Self-Care Condition: (1) Good Instructions: Acute Bronchitis (ED), COPD (Chronic Obstructive Pulmonary Disease) (ED) Additional Instructions: continue home meds and take azithromycin follow up with Dr. Wen tomorrow at 10 :00 am Prescriptions: Azithromycin [Zithromax] 500 mg PO DAILY #7 tab Cephalexin [Keflex] 500 mg PO QID #40 cap Prednisone [Prednisone 10Mg] 10 mg PO ASDIR #30 tab Forms: Patient Portal Access Time of Disposition: 12:59 Quality - Quality Measures Quality Measures: N/A - Blood Pressure Screening Does Patient Have Any of the Following: No Blood Pressure Classification: Pre-Hypertensive BP Reading Systolic Measurement: 131 Diastolic Measurement: 68 Screening for High Blood Pressure: < Pre-Hypertensive BP, F/U Documented > [ G8950] Pre-Hypertensive Follow-up Interventions: Referral to alternative/primary care provider.
--- NOTE | 2017-02-15 15:18 | RADIOLOGY REPORT ---
EXAM: CHEST, TWO VIEWS HISTORY: SHORTNESS OF BREATH. TECHNIQUE: Frontal and lateral views of the chest were obtained. Comparison: 08/16/16 chest. FINDINGS: The heart size is normal. Osteopenia. Multiple old right rib fractures. Calcified granulomata in the left upper lobe. Stable blunting of the right costophrenic angle which likely relates to chronic area of pleural thickening. No pneumothorax. IMPRESSION: NO ACUTE CARDIOPULMONARY PROCESS. STABLE BLUNTING OF THE RIGHT COSTOPHRENIC ANGLE LIKELY RELATING TO AN AREA OF CHRONIC PLEURAL THICKENING. JOB NUMBER: [id number] MTDD
--- NOTE | 2017-02-16 15:41 | Emergency Department Record ---
History of Present Illness - General Chief Complaint: Shortness of breath Stated Complaint: NICOLAS Time Seen by Provider: 02/14/17 10:33 Source: Patient, RN notes reviewed Mode of Arrival: Ambulatory - History of Present Illness Onset/Timin -: Hour(s) Consistency: Constant Known History Of: COPD, Other Treatments Prior to Arrival: Bronchodilator - Related Data Home Oxygen Therapy: Yes (at night) Home Oxygen Amount: 2 Liters Home Medications Medication Instructions Recorded Confirmed Last Taken Cilostazol 50 mg PO BID 02/14/17 02/14/17 02/13/17 Potassium Chloride [Klor-Con] 20 meq PO DAILY 02/14/17 02/14/17 02/13/17 Previous Rx's Medication Instructions Recorded Azithromycin [Zithromax] 500 mg PO DAILY #7 tab 02/14/17 Cephalexin [Keflex] 500 mg PO QID #40 cap 02/14/17 Prednisone [Prednisone 10Mg] 10 mg PO ASDIR #30 tab 02/14/17 Allergies Allergy/AdvReac Type Severity Reaction Status Date / Time meperidine HCl [From Demerol] Allergy SWELLING Verified 10/09/16 10:44 (GENERAL) Penicillins Allergy RASH Verified 10/09/16 10:44 codeine AdvReac BODY ACHES Verified 10/09/16 10:44 Tetanus Vaccines and Toxoid AdvReac BODY ACHES Verified 10/09/16 10:44 [Tetanus Vaccines & Toxoid] Travel Screening - Travel/Exposure Within Last 30 Days Have you traveled within the last 30 days?: No - Travel/Exposure Within Last Year Have you traveled outside the [place] in the last year?: No - Additonal Travel Details Have you been exposed to anyone with a communicable illness?: No - Travel Symptoms Symptom Screening: None Review of Systems Reviewed: No additional complaints except as noted below Constitutional: Reports: As per HPI. Denies: Chills, Fever, Malaise, Night sweats, Weakness, Weight change Eyes: Reports: As per HPI. Denies: Eye discharge, Eye pain, Photophobia, Vision change ENT: Reports: As per HPI, Congestion. Denies: Dental pain, Ear pain, Epistaxis , Hearing loss, Throat pain Respiratory: Reports: As per HPI, Cough, Dyspnea, Wheezes. Denies: Hemoptysis, Stridor Cardiovascular: Reports: As per HPI. Denies: Arrhythmia, Chest pain, Dyspnea on exertion, Edema, Murmurs, Orthopnea, Palpitations, Paroxysmal nocturnal dyspnea, Rheumatic Fever, Syncope Endocrine: Reports: As per HPI. Denies: Fatigue, Heat or cold intolerance, Polydipsia, Polyuria Gastrointestinal: Reports: As per HPI. Denies: Abdominal pain, Constipation, Diarrhea, Hematemesis, Hematochezia, Melena, Nausea, Vomiting Genitourinary: Reports: As per HPI. Denies: Dysuria, Frequency, Hematuria, Incontinence, Retention, Testicular pain, Testicular mass, Urgency Musculoskeletal: Reports: As per HPI. Denies: Arthralgia, Back pain, Gout, Joint swelling, Myalgia, Neck pain Skin: Reports: As per HPI. Denies: Bruising, Change in color, Change in hair/ nails, Lesions, Pruritus, Rash Neurological: Reports: As per HPI. Denies: Abnormal gait, Confusion, Headache, Numbness, Paresthesias, Seizure, Tingling, Tremors, Vertigo, Weakness Psychiatric: Reports: As per HPI. Denies: Anxiety, Auditory hallucinations, Depression, Homicidal thoughts, Suicidal thoughts, Visual hallucinations Hematological/Lymphatic: Reports: As per HPI. Denies: Anemia, Blood Clots, Easy bleeding, Easy bruising, Swollen glands Past Medical History - SOCIAL HISTORY Smoking Status: Former smoker - RESPIRATORY Hx Respiratory Disorders: Yes Hx Bronchitis: Yes Hx COPD: Yes Hx Pneumonia: Yes - CARDIOVASCULAR Hx Cardio Disorders: Yes Hx Abnormal EKG: Yes Hx Cardiac Cath: Yes Hx CHF: Yes Hx Heart Attack: Yes (after his stroke) Hx Hypotension: Yes Hx Irregular Heartbeat: Yes (A fib) Comment:: cardiac stents placed AND CURRENTLY ON COUMADIN - NEURO Hx Neuro Disorders: Yes Hx CVA: Yes (2003) Hx Weakness: Yes (LEFT SIDED WEAKNESS WITH SOME IMPROVEMENT AFTER) Comment:: WALKS WITH CANE - GI Hx GI Disorders: Yes Hx Reflux: Yes Hx of Polyps: Yes (POLYPS BENIGN) Comment:: STATES HAD BX DURING EGD AND HAD BLEED - Hx Genitourinary Disorders: Yes Hx Bladder Problem: Yes (UNABLE TO VOID) Comment:: INTERMITTENT ISSUES WITH INABILITY TO VOID FOR LAST SEVERAL MONTHS - ENDOCRINE Hx Endocrine Disorders: No - MUSCULOSKELETAL Hx Musculoskeletal Disorders: Yes Hx Arthritis: Yes - PSYCH Hx Psych Problems: Yes Hx Anxiety: Yes Hx Depression: Yes - HEMATOLOGY/ONCOLOGY Hx Hematology/Oncology Disorders: Yes Hx Clotting Problems: Yes (TAKES COUMADIN) Hx Blood Transfusions: Yes Hx Blood Transfusion Reaction: No Family Medical History Hx Alcohol Use: Father, Grandparents Hx Heart Disease: Mother, Brother/Sister Hx Stroke: Father Course Vital Signs 02/14/17 02/14/17 02/14/17 10:28 10:40 11:00 Temperature 98.1 F Pulse Rate 94 H 94 H Pulse Rate [ 85 Pulse Ox Probe] Respiratory 20 19 18 Rate Blood Pressure 131/68 Blood Pressure 112/79 [Left Arm] Pulse Ox 96 98 97 02/14/17 02/14/17 02/14/17 11:30 12:00 12:30 Temperature Pulse Rate Pulse Rate [ 90 87 91 H Pulse Ox Probe] Respiratory 16 16 16 Rate Blood Pressure Blood Pressure 126/73 120/72 126/86 [Left Arm] Pulse Ox 97 96 96 02/14/17 02/14/17 13:00 13:30 Temperature 98.2 F Pulse Rate 90 Pulse Rate [ 89 Pulse Ox Probe] Respiratory 16 16 Rate Blood Pressure 133/83 Blood Pressure 133/83 [Left Arm] Pulse Ox 97 96 Medical Decision Making - Lab Data Result diagrams: 02/14/17 10:41 02/14/17 10:41 Lab Results 02/14/17 02/14/17 02/14/17 Range/Units 10:41 10:41 10:41 WBC 7.8 (4.2-12.2) K/uL RBC 4.75 (4.40-5.70) M/uL Hgb 13.7 L (14.0-18.0) gm/dl Hct 42.1 (42.0-52.0) % MCV 88.6 (81-97) fl MCH 28.8 (27-33) pg MCHC 32.5 (32-36) g/dl RDW 13.3 (11.5-14.5) % Plt Count 226 (130-400) K/uL MPV 9.3 (7.4-10.4) fl Gran % 66.1 (47-80) % Neutrophils % Not Reportable Lymphocytes % 19.1 (16-45) % Monocytes % 8.1 (0-9) % Eosinophils % 6.3 H (0-6) % Basophils % 0.4 (0-6) % Lymphocytes Not Reportable Monocytes Not Reportable PT 21.4 H (9.5-12.1) SECONDS INR 1.97 APTT 42.50 H (24.5-39.1) SECONDS Sodium 138 (136-145) mmol/L Potassium 4.2 (3.4-4.5) mmol/L Chloride 100 (98-107) mmol/L Carbon Dioxide 27.0 (22-29) mmol/L Anion Gap 11.0 (7-16) BUN 10 (8-23) mg/dL Creatinine 0.9 (0.7-1.2) mg/dL Estimated GFR > 60 mL/min Random Glucose 114 H (74-109) mg/dL Calcium 9.1 (8.8-10.2) mg/dL CK-MB (CK-2) 2.3 (<6.73) ng/mL Troponin I < 0.30 (0.00-0.300) ng/mL Disposition Clinical Impression: Bronchitis, COPD exacerbation Atrial fibrillation Qualifiers: Atrial fibrillation type: chronic Qualified Code(s): I48.2 - Chronic atrial fibrillation Disposition: Home, Self-Care Condition: (1) Good Instructions: Acute Bronchitis (ED), COPD (Chronic Obstructive Pulmonary Disease) (ED) Additional Instructions: continue home meds and take azithromycin follow up with Dr. Wen tomorrow at 10 :00 am Prescriptions: Azithromycin [Zithromax] 500 mg PO DAILY #7 tab Cephalexin [Keflex] 500 mg PO QID #40 cap Prednisone [Prednisone 10Mg] 10 mg PO ASDIR #30 tab Forms: Patient Portal Access Quality - Quality Measures Quality Measures: N/A - Blood Pressure Screening Does Patient Have Any of the Following: No, Active Dx of HTN Blood Pressure Classification: Pre-Hypertensive BP Reading Systolic Measurement: 133 Diastolic Measurement: 83 Screening for High Blood Pressure: < Pre-Hypertensive BP, F/U Documented > [ G8950] Pre-Hypertensive Follow-up Interventions: Referral to alternative/primary care provider.
== END 2017-02-14 13:32 | disposition home or self-care (01) ==
LOC: ER 10:23
DX: J44.1 Chronic obstructive pulmonary disease with (acute) exacerbation (principal); J20.9 Acute bronchitis, unspecified; J44.0 Chronic obstructive pulmonary disease with (acute) lower respiratory infection; I48.92 Unspecified atrial flutter; I25.2 Old myocardial infarction; Z79.01 Long term (current) use of anticoagulants
CPT/HCPCS: 71020; 80048; 82553; 84484; 85027; 85610; 85730; 93005; 93010; 96374; 96375; 99284; J1940; J2930

== ENCOUNTER 2017-03-03 15:25 | Emergency (ER) | payer MEDICARE, BC ==
[2017-03-03] MEDS ORDERED: METHYLPREDNISOLONE PF 125MG/VIAL IVP ONE (15:33)
[2017-03-03] MEDS ORDERED: IPRATROPIUM/ALBUTEROL (0.5MG/3MG) NEB INH ONE (15:33)
[2017-03-03 15:46] LABS: BASO % 0.2 % (0-6); EOS % 6.1 % (0-6); GRAN % 72.8 % (47-80); HEMATOCRIT 41.1 % (42.0-52.0); HEMOGLOBIN 13.2 gm/dl (14.0-18.0); LYMPH % 11.9 % (16-45); MEAN CELL VOLUME 90.1 fl (81-97); MEAN CORPUSCULAR HEMOGLOBIN 28.9 pg (27-33); MEAN CORPUSCULAR HGB CONC 32.1 g/dl (32-36); MEAN PLATELET VOLUME 8.4 fl (7.4-10.4); PLATELET COUNT 229 K/uL (130-400); RED BLOOD COUNT 4.56 M/uL (4.40-5.70); RED CELL DISTRIBUTION WIDTH 14.2 % (11.5-14.5); WHITE BLOOD COUNT W/O DIFF 8.9 K/uL (4.2-12.2)
--- NOTE | 2017-03-03 15:50 | Emergency Department Record ---
History of Present Illness - General Chief Complaint: Shortness of breath Stated Complaint: COUGH,SOB Time Seen by Provider: 03/03/17 15:33 Source: Patient Mode of Arrival: Ambulatory Limitations: No limitations - History of Present Illness Initial Comments: 76 yo male presents to ED for evaluation of shortness of breath and cough symptoms for several days. Patient denies fevers, chills, or productive cough symptoms. Patient reports that he was seen several days ago by his PCP, started on Keflex which is daughter threw away 2 days ago as the medication "smelled funny". Patient does report wheezing symptoms and a history of COPD as well. Patient reports that his symptoms improve with albuterol at home. MD Complaint: Cough, Shortness of breath Onset/Timin -: Week(s) Severity: Moderate Consistency: Intermittent Improves With: Bronchodilators Worsens With: Coughing Known History Of: COPD Associated Symptoms: Cough - Related Data Home Oxygen Therapy: Yes (at night) Home Oxygen Amount: 2 Liters Previous Rx's Medication Instructions Recorded Azithromycin [Zithromax] 250 mg PO DAILY #6 tab 03/03/17 Prednisone [Prednisone 20Mg] 20 mg PO TID #12 tab 03/03/17 Allergies Allergy/AdvReac Type Severity Reaction Status Date / Time meperidine HCl [From Demerol] Allergy SWELLING Verified 03/03/17 15:34 (GENERAL) Penicillins Allergy RASH Verified 03/03/17 15:34 codeine AdvReac BODY ACHES Verified 03/03/17 15:34 Tetanus Vaccines and Toxoid AdvReac BODY ACHES Verified 03/03/17 15:34 [Tetanus Vaccines & Toxoid] Travel Screening - Travel/Exposure Within Last 30 Days Have you traveled within the last 30 days?: No Review of Systems Constitutional: Denies: Chills, Fever, Malaise, Night sweats Eyes: Denies: Eye discharge, Eye pain ENT: Denies: Congestion, Ear pain, Epistaxis Respiratory: Reports: Cough, Dyspnea, Wheezes Cardiovascular: Reports: Dyspnea on exertion. Denies: Chest pain Endocrine: Denies: Fatigue, Heat or cold intolerance Gastrointestinal: Denies: Abdominal pain, Nausea, Vomiting Genitourinary: Denies: Incontinence, Retention Musculoskeletal: Denies: Arthralgia, Back pain, Gout, Joint swelling Skin: Denies: Bruising, Change in color Neurological: Denies: Abnormal gait, Confusion, Headache, Seizure Psychiatric: Denies: Anxiety Hematological/Lymphatic: Denies: Anemia, Blood Clots Past Medical History - SOCIAL HISTORY Smoking Status: Former smoker Alcohol Use: None Drug Use: None - RESPIRATORY Hx Respiratory Disorders: Yes Hx Bronchitis: Yes Hx COPD: Yes Hx Pneumonia: Yes Comment:: 2L O2 at night - CARDIOVASCULAR Hx Cardio Disorders: Yes Hx Abnormal EKG: Yes Hx Cardiac Cath: Yes Hx CHF: Yes Hx Heart Attack: Yes (after his stroke) Hx Hypotension: Yes Hx Irregular Heartbeat: Yes (A fib) Comment:: cardiac stents placed AND CURRENTLY ON COUMADIN - NEURO Hx Neuro Disorders: Yes Hx CVA: Yes (2003) Hx Weakness: Yes (LEFT SIDED WEAKNESS WITH SOME IMPROVEMENT AFTER) Comment:: WALKS WITH CANE - GI Hx GI Disorders: Yes Hx Reflux: Yes Hx of Polyps: Yes (POLYPS BENIGN) Comment:: STATES HAD BX DURING EGD AND HAD BLEED - Hx Genitourinary Disorders: Yes Hx Bladder Problem: Yes (UNABLE TO VOID) Comment:: INTERMITTENT ISSUES WITH INABILITY TO VOID FOR LAST SEVERAL MONTHS - ENDOCRINE Hx Endocrine Disorders: No - MUSCULOSKELETAL Hx Musculoskeletal Disorders: Yes Hx Arthritis: Yes - PSYCH Hx Psych Problems: Yes Hx Anxiety: Yes Hx Depression: Yes - HEMATOLOGY/ONCOLOGY Hx Hematology/Oncology Disorders: Yes Hx Clotting Problems: Yes (TAKES COUMADIN) Hx Blood Transfusions: Yes Hx Blood Transfusion Reaction: No Family Medical History Any Significant Family History?: Yes Hx Alcohol Use: Father, Grandparents Hx Heart Disease: Mother, Brother/Sister Hx Stroke: Father Physical Exam - General General Appearance: Alert, Oriented x3, Cooperative, Mild distress Limitations: No limitations - Head Head exam: Atraumatic, Normocephalic, Normal inspection Head exam detail: negative: Abrasion, Contusion, Connolly's sign, General tenderness, Hematoma, Laceration - Eye Eye exam: Normal appearance. negative: Conjunctival injection, Periorbital swelling, Periorbital tenderness, Scleral icterus - ENT Ear exam: negative: Auricular hematoma, Auricular trauma Nasal Exam: negative: Active bleeding, Discharge, Dried blood, Foreign body Mouth exam: negative: Drooling, Laceration, Muffled voice, Tongue elevation - Neck Neck exam: Normal inspection. negative: Meningismus, Tenderness - Respiratory Respiratory exam: Decreased breath sounds, Prolonged expiratory, Respiratory distress, Wheezes - Cardiovascular Cardiovascular Exam: Irregular rhythm - GI/Abdominal GI/Abdominal exam: Soft. negative: Rebound, Rigid, Tenderness - Rectal Rectal exam: Deferred - exam: Deferred - Extremities Extremities exam: Normal inspection. negative: Calf tenderness, Pedal edema, Tenderness - Back Back exam: Denies: CVA tenderness (R), CVA tenderness (L) - Neurological Neurological exam: Alert, Normal gait, Oriented X3 - Psychiatric Psychiatric exam: Normal affect, Normal mood - Skin Skin exam: Normal color. negative: Abrasion Type of lesion: negative: abrasion Course Vital Signs 03/03/17 15:31 Temperature 98.1 F Pulse Rate 101 H Respiratory 20 Rate Blood Pressure 129/82 Pulse Ox 95 - Reevaluation(s) Reevaluation #1: 03/03/17 15:48 Patient seen and examined, has mild-moderate wheezes on examination with reduced BS. Will administer duoneb and obtain basic labs CXR for further evaluation and reassess. Patient reports only using oxygen at night for his COPD symptoms. Reevaluation #2: 03/03/17 15:57 EKG: Atrial fibrillation 90 normal axis, irregular R-R intervals No acute ST-T wave changes are present NO change from 02/14/17. Reevaluation #3: 03/03/17 16:07 Labs reviewed and are grossly unremarkable for an acute process. Reevaluation #4: 03/03/17 16:37 CXR: Chronic changes, nothing acute Patient was reassessed, reports that he is feeling much better following Duoneb treatment. Patient was updated on all results, and appears stable for discharge with treatment for his COPD symptoms with Prednisone and Zithromax as directed. Patient agrees with plan as discussed. Medical Decision Making - Lab Data Result diagrams: 03/03/17 15:43 03/03/17 15:43 Disposition Disposition: Discharge Clinical Impression: COPD exacerbation Disposition: Home, Self-Care Condition: (2) Stable Instructions: COPD (Chronic Obstructive Pulmonary Disease) (ED) Additional Instructions: Return to ED if your symptoms worsen or if you have any concerns. Zithromax and Prednisone as directed. Follow-up with your family doctor in 1-3 days as directed. Prescriptions: Azithromycin [Zithromax] 250 mg PO DAILY #6 tab Prednisone [Prednisone 20Mg] 20 mg PO TID #12 tab Forms: Patient Portal Access Time of Disposition: 16:39 Quality - Quality Measures Quality Measures: N/A - Blood Pressure Screening Does Patient Have Any of the Following: No Blood Pressure Classification: Normal BP Reading Systolic Measurement: 119 Diastolic Measurement: 79 Screening for High Blood Pressure: < Normal BP, F/U Not Required > [G8783]
[2017-03-03 16:04] LABS: ALB/GLOB RATIO 1.3 (1.1-1.8); ALBUMIN 3.7 g/dL (4.0-5.0); ALKALINE PHOSPHATASE 81 U/L (40-129); ALT/SGPT 16 U/L (<41); AST/SGOT 13 U/L (10.0-50.0); BLOOD UREA NITROGEN 17 mg/dL (8-23); EST GLOMERULAR FILTRATION RATE > 60 mL/min; GLUCOSE,RANDOM 106 mg/dL (74-109); TOTAL PROTEIN 6.6 g/dL (6.6-8.7)
--- NOTE | 2017-03-05 03:54 | RADIOLOGY REPORT ---
DATE: 03/03/2017. EXAM: CHEST, TWO VIEWS. HISTORY: Dyspnea and productive cough with discolored mucus. COMPARISON: 02/14/2017. TECHNIQUE: Two views of the chest were obtained. FINDINGS: The cardiomediastinal silhouette is stable. There is similar bibasilar scarring or atelectasis. No focal consolidation or pleural effusion. There is calcific granulomata in the left upper lobe. Chronic blunting right lateral CP angle. Chronic-appearing right-sided rib, midclavicular, and scapular fractures. IMPRESSION: STABLE EXAMINATION. CHRONIC OSSEOUS CHANGES. BIBASILAR ATELECTASIS OR SCARRING. PRESUMED PLEURAL THICKENING OR SCARRING IN THE RIGHT LATERAL LUNG BASE. JOB NUMBER: [id number] MTDD
== END 2017-03-03 16:52 | disposition home or self-care (01) ==
LOC: ER 15:25
DX: J44.1 Chronic obstructive pulmonary disease with (acute) exacerbation (principal); R06.02 Shortness of breath; I50.9 Heart failure, unspecified; I25.2 Old myocardial infarction; I69.854 Hemiplegia and hemiparesis following other cerebrovascular disease affecting left non-dominant side; Z99.81 Dependence on supplemental oxygen; Z87.891 Personal history of nicotine dependence; Z79.01 Long term (current) use of anticoagulants
CPT/HCPCS: 71020; 80053; 85025; 93005; 93010; 94640; 96374; 99284; J2930

== ENCOUNTER 2017-06-28 10:06 | Emergency (ER) | payer MEDICARE, BC ==
--- NOTE | 2017-06-28 10:41 | Emergency Department Record ---
History of Present Illness - General Chief Complaint: Cough Stated Complaint: Sinus congestion and cough Time Seen by Provider: 06/28/17 10:25 Source: Patient Mode of Arrival: Ambulatory Limitations: No limitations - History of Present Illness Initial Comments: The patient is here due to a cough, congestion, and nasal drainage for 2 weeks. He denies any Cp, SOB, fever, chills, or SANTOS. MD Complaint: Cough, Nasal congestion, Rhinorrhea Onset/Timin -: Week(s) Severity: Mild - Related Data Previous Rx's Medication Instructions Recorded Doxycycline Monohydrate [Mondoxyne 100 mg PO BID #14 capsule 06/28/17 Nl] Allergies Allergy/AdvReac Type Severity Reaction Status Date / Time meperidine HCl [From Demerol] Allergy SWELLING Verified 06/28/17 10:11 (GENERAL) Penicillins Allergy RASH Verified 06/28/17 10:11 codeine AdvReac BODY ACHES Verified 06/28/17 10:11 Tetanus Vaccines and Toxoid AdvReac BODY ACHES Verified 06/28/17 10:11 [Tetanus Vaccines & Toxoid] Travel Screening - Travel/Exposure Within Last 30 Days Have you traveled within the last 30 days?: No - Travel/Exposure Within Last Year Have you traveled outside the [place] in the last year?: No - Additonal Travel Details Have you been exposed to anyone with a communicable illness?: No - Travel Symptoms Symptom Screening: None Review of Systems Constitutional: Denies: Chills, Fever Eyes: Denies: Eye discharge ENT: Reports: Congestion Respiratory: Reports: Cough. Denies: Dyspnea Past Medical History - SOCIAL HISTORY Smoking Status: Former smoker Alcohol Use: None Drug Use: None - RESPIRATORY Hx Respiratory Disorders: Yes Hx Bronchitis: Yes Hx COPD: Yes Hx Pneumonia: Yes Comment:: 2L O2 at night - CARDIOVASCULAR Hx Cardio Disorders: Yes Hx Abnormal EKG: Yes Hx Cardiac Cath: Yes Hx CHF: Yes Hx Heart Attack: Yes (after his stroke) Hx Hypotension: Yes Hx Irregular Heartbeat: Yes (A fib) Comment:: cardiac stents placed AND CURRENTLY ON COUMADIN - NEURO Hx Neuro Disorders: Yes Hx CVA: Yes (2003) Hx Weakness: Yes (LEFT SIDED WEAKNESS WITH SOME IMPROVEMENT AFTER) Comment:: WALKS WITH CANE - GI Hx GI Disorders: Yes Hx Reflux: Yes Hx of Polyps: Yes (POLYPS BENIGN) Comment:: STATES HAD BX DURING EGD AND HAD BLEED - Hx Genitourinary Disorders: Yes Hx Bladder Problem: Yes (UNABLE TO VOID) Comment:: INTERMITTENT ISSUES WITH INABILITY TO VOID FOR LAST SEVERAL MONTHS - ENDOCRINE Hx Endocrine Disorders: No - MUSCULOSKELETAL Hx Musculoskeletal Disorders: Yes Hx Arthritis: Yes - PSYCH Hx Psych Problems: Yes Hx Anxiety: Yes Hx Depression: Yes - HEMATOLOGY/ONCOLOGY Hx Hematology/Oncology Disorders: Yes Hx Clotting Problems: Yes (TAKES COUMADIN) Hx Blood Transfusions: Yes Hx Blood Transfusion Reaction: No Family Medical History Any Significant Family History?: Yes Hx Alcohol Use: Father, Grandparents Hx Heart Disease: Mother, Brother/Sister Hx Stroke: Father Physical Exam - General General Appearance: Alert, Oriented x3, Cooperative, No acute distress - Head Head exam: Atraumatic, Normocephalic, Normal inspection - Eye Eye exam: Normal appearance, PERRL - ENT ENT exam: Normal exam, Mucous membranes moist, Normal external ear exam, Normal orophraynx, TM's normal bilaterally Throat exam: Normal inspection. negative: Tonsillar erythema, Tonsillar exudate - Neck Neck exam: Normal inspection, Full ROM. negative: Tenderness - Respiratory Respiratory exam: Normal lung sounds bilaterally. negative: Respiratory distress - Cardiovascular Cardiovascular Exam: Regular rate, Normal rhythm, Normal heart sounds - GI/Abdominal GI/Abdominal exam: Soft, Normal bowel sounds. negative: Tenderness - Extremities Extremities exam: Normal inspection, Full ROM, Normal capillary refill. negative: Tenderness - Neurological Neurological exam: Alert, Normal gait. negative: Abnormal gait, Motor sensory deficit Course Vital Signs 06/28/17 10:17 Temperature 98 F Pulse Rate 96 H Respiratory 18 Rate Blood Pressure 107/73 Pulse Ox 96 - Reevaluation(s) Reevaluation #1: I did explain to the patient we will place him on Doxycycline and will have him decrease his Coumadin to 1 mg daily on Sun, Sun, and Sunday. 06/28/17 10:39 Disposition Disposition: Discharge Clinical Impression: Upper respiratory infection, acute Disposition: Home, Self-Care Condition: (2) Stable Instructions: Cold Symptoms (ED) Additional Instructions: Please take the Doxycycline as directed and decrease your Coumadin to 1 mg daily on Sunday, Sunday and Sunday ONLY while you are taking the Doxycycline. Please see your PCP next week for recheck. Return to the ER for any worsening symptoms. Prescriptions: Doxycycline Monohydrate [Mondoxyne Nl] 100 mg PO BID #14 capsule Forms: Patient Portal Access Time of Disposition: 10:41 Quality - Quality Measures Quality Measures: N/A - Blood Pressure Screening View Details: Yes Does Patient Have Any of the Following: No Blood Pressure Classification: Normal BP Reading Systolic Measurement: 107 Diastolic Measurement: 73 Screening for High Blood Pressure: < Normal BP, F/U Not Required > [G8783]
== END 2017-06-28 10:46 | disposition home or self-care (01) ==
LOC: ER 10:06
DX: J06.9 Acute upper respiratory infection, unspecified (principal); I48.91 Unspecified atrial fibrillation; Z87.891 Personal history of nicotine dependence; I50.9 Heart failure, unspecified; I25.2 Old myocardial infarction; Z79.01 Long term (current) use of anticoagulants
CPT/HCPCS: 99282

== ENCOUNTER 2018-03-20 16:58 | Observation (INO) | payer MEDICARE, BC ==
[2018-03-20] MEDS ORDERED: CIPROFLOXACIN LACTATE/D5W 400 MG/200 ML BAG IVPB ONE (17:14)
--- NOTE | 2018-03-20 17:22 | Emergency Department Record ---
History of Present Illness - General Chief complaint: Male Urogenital Problem Stated complaint: CANT URINATE Time Seen by Provider: 03/20/18 17:09 Source: Patient, RN notes reviewed Mode of Arrival: Wheelchair - History of Present Illness Initial comments: [facility] and he has had dysuria for 24 hours and he took tylenol 1 hour prior to coming to ED and he had the shakes in [facility]. Currently he feels better but tired PMH atrial fib and on coumadin , COPD , Onset/Timin -: Days(s) Severity: Moderate Severity scale (1-10): 9 Quality: Burning, Sharp Consistency: Intermittent Improves with: None Worsens with: Urination Recent surgery Reports: Blood in urine, Dysuria, Urinary retention - Related Data Allergies Allergy/AdvReac Type Severity Reaction Status Date / Time latex Allergy RASH Verified 03/20/18 17:00 meperidine HCl [From Demerol] Allergy SWELLING Verified 03/20/18 17:00 (GENERAL) Penicillins Allergy RASH Verified 03/20/18 17:00 codeine AdvReac BODY ACHES Verified 03/20/18 17:00 Tetanus Vaccines and Toxoid AdvReac BODY ACHES Verified 03/20/18 17:00 [Tetanus Vaccines & Toxoid] Travel Screening - Travel/Exposure Within Last 30 Days Have you traveled within the last 30 days?: No - Travel/Exposure Within Last Year Have you traveled outside the [place] in the last year?: No - Additonal Travel Details Have you been exposed to anyone with a communicable illness?: No - Travel Symptoms Symptom Screening: None Review of Systems Reviewed: No additional complaints except as noted below Constitutional: Reports: As per HPI. Denies: Chills, Fever, Malaise, Night sweats, Weakness, Weight change Eyes: Reports: As per HPI. Denies: Eye discharge, Eye pain, Photophobia, Vision change ENT: Reports: As per HPI. Denies: Congestion, Dental pain, Ear pain, Epistaxis , Hearing loss, Throat pain Respiratory: Reports: As per HPI. Denies: Cough, Dyspnea, Hemoptysis, Stridor, Wheezes Cardiovascular: Reports: As per HPI. Denies: Arrhythmia, Chest pain, Dyspnea on exertion, Edema, Murmurs, Orthopnea, Palpitations, Paroxysmal nocturnal dyspnea, Rheumatic Fever, Syncope Endocrine: Reports: As per HPI. Denies: Fatigue, Heat or cold intolerance, Polydipsia, Polyuria Gastrointestinal: Reports: As per HPI. Denies: Abdominal pain, Constipation, Diarrhea, Hematemesis, Hematochezia, Melena, Nausea, Vomiting Genitourinary: Reports: As per HPI. Denies: Dysuria, Frequency, Hematuria, Incontinence, Retention, Testicular pain, Testicular mass, Urgency Musculoskeletal: Reports: As per HPI. Denies: Arthralgia, Back pain, Gout, Joint swelling, Myalgia, Neck pain Skin: Reports: As per HPI. Denies: Bruising, Change in color, Change in hair/ nails, Lesions, Pruritus, Rash Neurological: Reports: As per HPI. Denies: Abnormal gait, Confusion, Headache, Numbness, Paresthesias, Seizure, Tingling, Tremors, Vertigo, Weakness Psychiatric: Reports: As per HPI. Denies: Anxiety, Auditory hallucinations, Depression, Homicidal thoughts, Suicidal thoughts, Visual hallucinations Hematological/Lymphatic: Reports: As per HPI. Denies: Anemia, Blood Clots, Easy bleeding, Easy bruising, Swollen glands Past Medical History - SOCIAL HISTORY Smoking Status: Former smoker Alcohol Use: None Drug Use: None - RESPIRATORY Hx Respiratory Disorders: Yes Hx Bronchitis: Yes Hx COPD: Yes Hx Pneumonia: Yes Comment:: 2L O2 at night - CARDIOVASCULAR Hx Cardio Disorders: Yes Hx Abnormal EKG: Yes Hx Cardiac Cath: Yes Hx CHF: Yes Hx Heart Attack: Yes (after his stroke) Hx Hypotension: Yes Hx Irregular Heartbeat: Yes (A fib) Comment:: cardiac stents placed AND CURRENTLY ON COUMADIN - NEURO Hx Neuro Disorders: Yes Hx CVA: Yes (2003) Hx Weakness: Yes (LEFT SIDED WEAKNESS WITH SOME IMPROVEMENT AFTER) Comment:: WALKS WITH CANE - GI Hx GI Disorders: Yes Hx Reflux: Yes Hx of Polyps: Yes (POLYPS BENIGN) Comment:: STATES HAD BX DURING EGD AND HAD BLEED - Hx Genitourinary Disorders: Yes Hx Bladder Problem: Yes (UNABLE TO VOID) Comment:: INTERMITTENT ISSUES WITH INABILITY TO VOID FOR LAST SEVERAL MONTHS - ENDOCRINE Hx Endocrine Disorders: No - MUSCULOSKELETAL Hx Musculoskeletal Disorders: Yes Hx Arthritis: Yes - PSYCH Hx Psych Problems: Yes Hx Anxiety: Yes Hx Depression: Yes - HEMATOLOGY/ONCOLOGY Hx Hematology/Oncology Disorders: Yes Hx Clotting Problems: Yes (TAKES COUMADIN) Hx Blood Transfusions: Yes Hx Blood Transfusion Reaction: No Family Medical History Any Significant Family History?: Yes Hx Alcohol Use: Father, Grandparents Hx Heart Disease: Mother, Brother/Sister Hx Stroke: Father Physical Exam - General General Appearance: Alert, Oriented x3, Cooperative, No acute distress - Head Head exam: Normal inspection - Eye Eye exam: Normal appearance, PERRL Pupils: Normal accommodation - ENT ENT exam: Normal exam, Mucous membranes moist, Normal external ear exam, Normal orophraynx, TM's normal bilaterally Ear exam: Normal external inspection. negative: External canal tenderness Nasal Exam: Normal inspection. negative: Discharge, Sinus tenderness Mouth exam: Normal external inspection, Tongue normal Teeth exam: Normal inspection. negative: Dental caries Throat exam: Normal inspection. negative: Tonsillar erythema, Tonsillar exudate - Neck Neck exam: Normal inspection, Full ROM. negative: Tenderness - Respiratory Respiratory exam: Normal lung sounds bilaterally. negative: Respiratory distress - Cardiovascular Cardiovascular Exam: Regular rate, Normal rhythm, Normal heart sounds - GI/Abdominal GI/Abdominal exam: Soft, Normal bowel sounds. negative: Tenderness - Rectal Rectal exam: Deferred - exam: Deferred - Extremities Extremities exam: Normal inspection, Full ROM, Normal capillary refill. negative: Tenderness - Back Back exam: Reports: Normal inspection, Full ROM. Denies: Muscle spasm, Rash noted, Tenderness - Neurological Neurological exam: Alert, Normal gait, Oriented X3, Reflexes normal - Psychiatric Psychiatric exam: Normal affect, Normal mood - Skin Skin exam: Dry, Intact, Normal color, Warm Course Vital Signs 03/20/18 17:06 Temperature 98.5 F Pulse Rate 121 H Respiratory 20 Rate Blood Pressure 143/76 Pulse Ox 95 - Reevaluation(s) Reevaluation #1: patient is tremulous and concerned he he has sepsis and will admit to GI 03/20/18 18:29 Reevaluation #2: discussed case with Dr Matson and will admit for IV antibiotics 03/20/18 18:36 Medical Decision Making - Lab Data Result diagrams: 03/20/18 17:25 03/20/18 17:25 Disposition Clinical Impression: Coarse tremors UTI (urinary tract infection) Qualifiers: Urinary tract infection type: acute cystitis Hematuria presence: without hematuria Qualified Code(s): N30.00 - Acute cystitis without hematuria Sepsis Qualifiers: Sepsis type: sepsis due to unspecified organism Qualified Code(s): A41.9 - Sepsis, unspecified organism Decision to Admit: Admit from ER Condition: (2) Stable Forms: Patient Portal Access Time of Disposition: 18:35 Quality - Quality Measures Quality Measures: N/A - Blood Pressure Screening Does Patient Have Any of the Following: No, Active Dx of HTN Blood Pressure Classification: Hypertensive Reading Systolic Measurement: 143 Diastolic Measurement: 76 Screening for High Blood Pressure: Patient Exclusion, Hx of HTN [G9744]
[2018-03-20] MEDS ORDERED: 0.9 % SODIUM CHLORIDE 500ML 500 ML IV SCH (17:30)
[2018-03-20 17:37] LABS: HEMATOCRIT 44.2 % (42.0-52.0); HEMOGLOBIN 14.2 gm/dl (14.0-18.0); MEAN CELL VOLUME 88.4 fl (81-97); MEAN CORPUSCULAR HEMOGLOBIN 28.4 pg (27-33); MEAN CORPUSCULAR HGB CONC 32.1 g/dl (32-36); MEAN PLATELET VOLUME 8.9 fl (7.4-10.4); PLATELET COUNT 248 K/uL (130-400); URINE APPEARANCE SL CLOUDY; URINE BILIRUBIN NEGATIVE (NEGATIVE); URINE BLOOD MODERATE (NEGATIVE); URINE COLOR YELLOW; URINE GLUCOSE (UA) NEGATIVE (NEGATIVE); URINE KETONE NEGATIVE (NEGATIVE); URINE LEUKOCYTE ESTERASE LARGE (NEGATIVE); URINE NITRITE POSITIVE (NEGATIVE); URINE PROTEIN NEGATIVE (NEGATIVE); URINE UROBILINOGEN 0.2 E.U./dL (0.20 - 1.00); WHITE BLOOD COUNT W/O DIFF 12.8 K/uL (4.2-12.2)
[2018-03-20 17:44] LABS: BLOOD UREA NITROGEN 14 mg/dL (8-23); CREATININE 1.2 mg/dL (0.7-1.2); EST GLOMERULAR FILTRATION RATE > 60 mL/min
[2018-03-20 17:47] LABS: GLUCOSE,RANDOM 98 mg/dL (74-109); INR 2.3; PROTHROMBIN TIME (PATIENT) 22.8 SECONDS (9.5-12.1)
[2018-03-20 17:57] LABS: URINE EPITHELIAL CELLS 0 - 2 (FEW)
[2018-03-20 17:58] LABS: URINE BACTERIA 4+
[2018-03-20] MEDS ORDERED: 0.9 % SODIUM CHLORIDE 1000ML 1,000 ML IV PRN (19:38)
[2018-03-20] MEDS ORDERED: IPRATROPIUM/ALBUTEROL (0.5MG/3MG) NEB INH PRN ×2 (19:38)
[2018-03-20] MEDS ORDERED: CIPROFLOXACIN LACTATE/D5W 400 MG/200 ML BAG IVPB SCH (19:38)
[2018-03-20] MEDS ORDERED: ACETAMINOPHEN 500 MG TABLET PO PRN (21:09)
[2018-03-20] MEDS: TAMSULOSIN HCL 0.4 MG CAP.ER.24H PO SCH (21:56)
[2018-03-20] MEDS: CILOSTAZOL 50 MG PO SCH (21:57)
[2018-03-20] MEDS ORDERED: TRAZODONE 50 MG TABLET PO SCH (22:00)
[2018-03-20] MEDS ORDERED: DILTIAZEM 240 MG CAP CR PO SCH (22:00)
[2018-03-20] MEDS ORDERED: AMITRIPTYLINE 25 MG TABLET PO SCH (22:00)
[2018-03-21] MEDS ORDERED: CIPROFLOXACIN LACTATE/D5W 400 MG/200 ML BAG IVPB SCH (06:00)
[2018-03-21 06:57] LABS: INR 2.5; PROTHROMBIN TIME (PATIENT) 24.8 SECONDS (9.5-12.1)
[2018-03-21] MEDS ORDERED: PANTOPRAZOLE SODIUM 40 MG TABLET PO SCH (07:00)
--- NOTE | 2018-03-21 09:13 | History & Physical ---
History of Present Illness - Date of Service Date of Service for History & Physical: 03/21/18 - History of Present Illness Admitting Diagnosis: UTI. sepsis. copd History of Present Illness: Mr. Jason is a 77 y/o male with history of BPH, chronic atrial fibrillation, peripheral artery disease and COPD is here with a one day history of burning and pain with urination. The patient says that his symptoms started yesterday morning and he began to feel somewhat chilly as well. He has a history of BPH and is on Flomax 0.4mg daily and says he urinates several times daily and there has not been any change in urine stream or abdominal distension. On arrival to the ED the patient's vitals were stable but his WBCs showed mild elevation 12.8 and he was mild tachycardia 112 but was afebrile. The patient's UA showed leukocytes + and nitrites +, and preliminary blood cultures had no growth. The patient was admitted for observation and and started on IV Cipro 400mg Q12H. On evaluation this morning the patient is alert,awake, oriented and in no acute distress. He reports feeling much better and no longer has burning with urination. Travel Screening - Travel/Exposure Within Last 30 Days Have you traveled within the last 30 days?: No - Travel/Exposure Within Last Year Have you traveled outside the [place] in the last year?: No - Additonal Travel Details Have you been exposed to anyone with a communicable illness?: No - Travel Symptoms Symptom Screening: None Review of Systems Constitutional: Reports: As per HPI. Denies: Chills, Fever, Malaise, Night sweats, Weakness, Weight change Eyes: Reports: As per HPI. Denies: Eye discharge, Eye pain, Photophobia, Vision change ENT: Reports: As per HPI. Denies: Congestion, Dental pain, Ear pain, Epistaxis , Hearing loss, Throat pain Respiratory: Reports: As per HPI. Denies: Cough, Dyspnea, Hemoptysis, Stridor, Wheezes Cardiovascular: Reports: As per HPI. Denies: Arrhythmia, Chest pain, Dyspnea on exertion, Edema, Murmurs, Orthopnea, Palpitations, Paroxysmal nocturnal dyspnea, Rheumatic Fever, Syncope Endocrine: Reports: As per HPI. Denies: Fatigue, Heat or cold intolerance, Polydipsia, Polyuria Gastrointestinal: Reports: As per HPI. Denies: Abdominal pain, Constipation, Diarrhea, Hematemesis, Hematochezia, Melena, Nausea, Vomiting Genitourinary: Reports: As per HPI. Denies: Dysuria, Frequency, Hematuria, Incontinence, Retention, Testicular pain, Testicular mass, Urgency Musculoskeletal: Reports: As per HPI. Denies: Arthralgia, Back pain, Gout, Joint swelling, Myalgia, Neck pain Skin: Reports: As per HPI. Denies: Bruising, Change in color, Change in hair/ nails, Lesions, Pruritus, Rash Neurological: Reports: As per HPI. Denies: Abnormal gait, Confusion, Headache, Numbness, Paresthesias, Seizure, Tingling, Tremors, Vertigo, Weakness Psychiatric: Reports: As per HPI. Denies: Anxiety, Auditory hallucinations, Depression, Homicidal thoughts, Suicidal thoughts, Visual hallucinations Hematological/Lymphatic: Reports: As per HPI. Denies: Anemia, Blood Clots, Easy bleeding, Easy bruising, Swollen glands Past Medical History - SOCIAL HISTORY Smoking Status: Former smoker Alcohol Use: None Drug Use: None - RESPIRATORY Hx Respiratory Disorders: Yes Hx Bronchitis: Yes Hx COPD: Yes Hx Pneumonia: Yes Comment:: 3L O2 at night - CARDIOVASCULAR Hx Cardio Disorders: Yes Hx Abnormal EKG: Yes Hx Cardiac Cath: Yes Hx CHF: Yes Hx Heart Attack: Yes (after his stroke) Hx Hypotension: Yes Hx Irregular Heartbeat: Yes (A fib) Comment:: cardiac stents placed AND CURRENTLY ON COUMADIN - NEURO Hx Neuro Disorders: Yes Hx CVA: Yes (2003) Hx Weakness: Yes (LEFT SIDED WEAKNESS WITH SOME IMPROVEMENT AFTER) Comment:: WALKS WITH CANE - GI Hx GI Disorders: Yes Hx Reflux: Yes Hx of Polyps: Yes (POLYPS BENIGN) Comment:: STATES HAD BX DURING EGD AND HAD BLEED - Hx Genitourinary Disorders: Yes Hx Bladder Problem: Yes (UNABLE TO VOID) Comment:: INTERMITTENT ISSUES WITH INABILITY TO VOID FOR LAST SEVERAL MONTHS - ENDOCRINE Hx Endocrine Disorders: No - MUSCULOSKELETAL Hx Musculoskeletal Disorders: Yes Hx Arthritis: Yes - PSYCH Hx Psych Problems: Yes Hx Anxiety: Yes Hx Depression: Yes - HEMATOLOGY/ONCOLOGY Hx Hematology/Oncology Disorders: Yes Hx Clotting Problems: Yes (TAKES COUMADIN) Hx Blood Transfusions: Yes Hx Blood Transfusion Reaction: No Family Medical History Any Significant Family History?: Yes Hx Alcohol Use: Father, Grandparents Hx Heart Disease: Mother, Brother/Sister Hx Stroke: Father H&P Meds/Allergies - Allergies Allergies: Allergies Allergy/AdvReac Type Severity Reaction Status Date / Time latex Allergy RASH Verified 03/20/18 17:00 meperidine HCl [From Demerol] Allergy SWELLING Verified 03/20/18 17:00 (GENERAL) Penicillins Allergy RASH Verified 03/20/18 17:00 codeine AdvReac BODY ACHES Verified 03/20/18 17:00 Tetanus Vaccines and Toxoid AdvReac BODY ACHES Verified 03/20/18 17:00 [Tetanus Vaccines & Toxoid] - Home Medications Home Medications Medication Instructions Recorded Confirmed Last Taken Amitriptyline HCl 25 mg PO QHS 03/21/18 03/21/18 Unknown - Active Medications Active Medications: Current Medications Acetaminophen (Tylenol 500mg Tab) 1,000 mg PO Q6H PRN PRN Reason: PAIN - MILD TO MODERATE (1-7) Last Admin: 03/20/18 21:57 Dose: 1,000 mg Albuterol/Ipratropium (Duoneb) 3 ml INH RESP.Q4H PRN PRN Reason: WHEEZING Amitriptyline HCl (Elavil) 25 mg PO QHS [facility] Last Admin: 03/20/18 21:56 Dose: 25 mg Ascorbic Acid (Vitamin C) 500 mg PO DAILY [facility] Cyanocobalamin (Vitamin B-12) 100 mcg PO DAILY [facility] Diltiazem HCl (Cardizem Cd) 240 mg PO QHS [facility] Last Admin: 03/20/18 21:56 Dose: 240 mg Sodium Chloride () 500 mls @ 0 mls/hr IV .Q0M [facility] Last Infusion: 03/20/18 19:50 Dose: Infused Ciprofloxacin Lactate (Cipro) 400 mg in 200 mls @ 200 mls/hr IVPB Q12H [facility] Stop: 03/26/18 06:01 Last Infusion: 03/21/18 06:50 Dose: Infused Sodium Chloride () 1,000 mls @ 50 mls/hr IV .Q20H PRN PRN Reason: LARGE VOLUME IV Last Admin: 03/21/18 05:37 Dose: 50 mls/hr Multivitamins/Minerals (Centrum) 1 tab PO DAILY [facility] Non-Formulary Medication (Cilostazol [Cilostazol]) 50 mg PO BID [facility] Last Admin: 03/20/18 21:57 Dose: Not Given Non-Formulary Medication (Finasteride [Proscar]) 5 mg PO DAILY [facility] Pantoprazole Sodium (Protonix) 40 mg PO DAILYAC [facility] Last Admin: 03/21/18 06:01 Dose: 40 mg Tamsulosin HCl (Flomax) 0.4 mg PO BID [facility] Last Admin: 03/20/18 21:56 Dose: 0.4 mg Trazodone HCl (Desyrel) 50 mg PO QHS [facility] Last Admin: 03/20/18 21:56 Dose: 50 mg Vitamin D (Vitamin D3) 1,000 unit PO DAILY [facility] Warfarin Sodium (Coumadin) 2.5 mg PO DAILY [facility] Physical Exam - Vital Signs Vital Signs: Vital Signs - Last 24 Hrs Temp Pulse Pulse Resp BP BP BP 03/21/18 07:34 98.8 F 87 24 103/47 03/21/18 05:55 70 16 03/21/18 05:44 97.4 F L 71 16 100/55 03/20/18 21:47 74 16 03/20/18 20:32 18 03/20/18 19:46 97.9 F 121 H 20 155/73 03/20/18 19:02 99.1 F 112 H 18 128/79 03/20/18 18:26 99.1 F 112 H 18 128/79 03/20/18 17:06 98.5 F 121 H 20 143/76 Pulse Ox 03/21/18 07:34 98 03/21/18 05:55 98 03/21/18 05:44 98 03/20/18 21:47 93 L 03/20/18 20:32 03/20/18 19:46 97 03/20/18 19:02 98 03/20/18 18:26 98 03/20/18 17:06 95 - General General Appearance: Alert, Oriented x3, Cooperative, No acute distress - Head Head exam: Normal inspection - Eye Eye exam: Normal appearance, PERRL Pupils: Normal accommodation - ENT ENT exam: Normal exam, Mucous membranes moist, Normal external ear exam, Normal orophraynx, TM's normal bilaterally Ear exam: Normal external inspection. negative: External canal tenderness Nasal Exam: Normal inspection. negative: Discharge, Sinus tenderness Mouth exam: Normal external inspection, Tongue normal Teeth exam: Normal inspection. negative: Dental caries Throat exam: Normal inspection. negative: Tonsillar erythema, Tonsillar exudate - Neck Neck exam: Normal inspection, Full ROM. negative: Tenderness - Respiratory Respiratory exam: Normal lung sounds bilaterally. negative: Respiratory distress - Cardiovascular Cardiovascular Exam: Regular rate, Normal rhythm, Normal heart sounds - GI/Abdominal GI/Abdominal exam: Soft, Normal bowel sounds. negative: Tenderness - Rectal Rectal exam: Deferred - exam: Deferred - Extremities Extremities exam: Normal inspection, Full ROM, Normal capillary refill. negative: Tenderness - Back Back exam: Reports: Normal inspection, Full ROM. Denies: Muscle spasm, Rash noted, Tenderness - Neurological Neurological exam: Alert, Normal gait, Oriented X3, Reflexes normal - Psychiatric Psychiatric exam: Normal affect, Normal mood - Skin Skin exam: Dry, Intact, Normal color, Warm Results - Labs Result Diagrams: 03/20/18 17:25 03/20/18 17:25 Labs Last 24 Hours: Laboratory Results - last 24 hr 03/20/18 03/20/18 03/20/18 17:25 17:25 17:25 WBC 12.8 H RBC 5.00 Hgb 14.2 Hct 44.2 MCV 88.4 MCH 28.4 MCHC 32.1 RDW 14.0 Plt Count 248 MPV 8.9 Neutrophils % 84.0 H Eosinophils % Not Reportable Basophils % Not Reportable Lymphocytes 6.0 L Monocytes 9.0 Eosinophil Count 1.0 PT INR Sodium 137 Potassium 3.8 Chloride 97 L Carbon Dioxide 29.0 Anion Gap 11.0 BUN 14 Creatinine 1.2 Estimated GFR > 60 Random Glucose 98 Calcium 9.4 Urine Color Yellow Urine Appearance Sl cloudy Urine pH 6.5 Ur Specific Donie 1.015 Urine Protein Negative Urine Glucose (UA) Negative Urine Ketones Negative Urine Blood Moderate Urine Nitrite Positive H Urine Bilirubin Negative Urine Urobilinogen 0.2 Ur Leukocyte Esterase Large H Urine RBC 10 - 15 Urine WBC 10 - 15 Ur Epithelial Cells 0 - 2 Urine Bacteria 4+ 03/20/18 03/21/18 17:25 06:17 WBC RBC Hgb Hct MCV MCH MCHC RDW Plt Count MPV Neutrophils % Eosinophils % Basophils % Lymphocytes Monocytes Eosinophil Count PT 22.8 H 24.8 H INR 2.3 2.5 Sodium Potassium Chloride Carbon Dioxide Anion Gap BUN Creatinine Estimated GFR Random Glucose Calcium Urine Color Urine Appearance Urine pH Ur Specific Donie Urine Protein Urine Glucose (UA) Urine Ketones Urine Blood Urine Nitrite Urine Bilirubin Urine Urobilinogen Ur Leukocyte Esterase Urine RBC Urine WBC Ur Epithelial Cells Urine Bacteria VTE H&P Assessment - Risk for VTE Risk for VTE: Yes Risk Level: High Risk Assessment Date: 03/21/18 Risk Assessment Time: 09:13 VTE Orders Placed or Will Be Placed: Yes Plan - Inpatient Certification Inpatient Certification: Admit to inpatient care: Based on my medical assessment, after consideration of patient's risk factors (age, co-morbidities and patient presenting symptoms and acuity), I expect that this patient will remain in the hospital greater than or equal to two midnights and that the services needed warrant inpatient care because: Patient Risk Factors: [] Estimated length of stay: [] The patient may reasonably be expected to be discharged or transferred to a hospital within 96 hours after admission to [facility]. Services needed: [] Post hospital care (if known): [] I certify that my determination is in accordance with my understanding of Medicare requirements for reasonable and necessary inpatient services. - Detailed Diagnosis and Plan (1) UTI (urinary tract infection) Current Visit: Yes Status: Acute Qualifiers: Urinary tract infection type: acute cystitis Hematuria presence: without hematuria Qualified Code(s): N30.00 - Acute cystitis without hematuria Base Code: N39.0 - URINARY TRACT INFECTION, SITE NOT SPECIFIED Comment: 03/21/18: - UA + leukocytes, nitrites, WBCs 10-15 - BCX preliminary: no growth, UCX pending - Cipro 400mg Q12H IV, change to PO 500mg Q12H for another 6 days. - Follow up with PCP within 5-7 days with UA. (2) BPH (benign prostatic hyperplasia) Current Visit: Yes Status: Acute Base Code: N40.0 - BENIGN PROSTATIC HYPERPLASIA WITHOUT LOWER URINRY TRACT SYMP Comment: 03/21/18: - resume BID flomax 0.4mg. (3) Chronic atrial fibrillation Current Visit: Yes Status: Acute Base Code: I48.2 - CHRONIC ATRIAL FIBRILLATION Comment: 03/21/18: - no acute changes on cardiac cath lab radiology technologist. Tachycardia resolved. - Cardizem 240mg QHS, anticoagulated on Coumadin. (4) Anticoagulant long-term use Current Visit: Yes Status: Acute Base Code: Z79.01 - INTERMEDIATE (CURRENT) USE OF ANTICOAGULANTS Comment: 03/21/18: - Coumadin daily dosing per pharmacy. - PT/INR: 24.8/2.5 (5) DVT prophylaxis Current Visit: Yes Status: Acute Base Code: [id number] - Comment: 03/21/18: - pt on therapeutic dose of Coumadin for a fib. - dose adjust as per pharmacy. PT/INR monitoring. (6) Full code status Current Visit: Yes Status: Acute Base Code: Z78.9 - OTHER SPECIFIED HEALTH STATUS
[2018-03-21] MEDS: TAMSULOSIN HCL 0.4 MG CAP.ER.24H PO SCH (09:57)
[2018-03-21] MEDS ORDERED: Non-Formulary MISC (Finasteride [Proscar] 5 MG) PO SCH (10:00)
[2018-03-21] MEDS ORDERED: CHOLECALCIFEROL 1,000 UNIT TABLET PO SCH (10:00)
[2018-03-21] MEDS ORDERED: MULTIVITAMINS/MINERALS TABLET PO SCH (10:00)
[2018-03-21] MEDS ORDERED: CYANOCOBALAMIN (VITAMIN B-12) 100 MCG TABLET PO SCH (10:00)
[2018-03-21] MEDS ORDERED: ARNUITY (FLUTICASONE FUROATE) 100MCG INH INH SCH (10:00)
[2018-03-21] MEDS ORDERED: ASCORBIC ACID 500 MG TAB PO SCH (10:00)
[2018-03-21] MEDS ORDERED: WARFARIN 2.5 MG TAB PO SCH (10:00)
--- NOTE | 2018-03-21 11:22 | Discharge Summary ---
Providers Discharge Summary Date: 03/21/18 Date of admission: 03/20/18 19:33 Attending physician: GUANAKITO MATSON Primary care physician: GUANAKITO MATSON Physical Exam - Vital Signs Vital Signs: Vital Signs - Last 24 Hrs Temp Pulse Pulse Resp BP BP BP 03/21/18 07:34 98.8 F 87 24 103/47 03/21/18 05:55 70 16 03/21/18 05:44 97.4 F L 71 16 100/55 03/20/18 21:47 74 16 03/20/18 20:32 18 03/20/18 19:46 97.9 F 121 H 20 155/73 03/20/18 19:02 99.1 F 112 H 18 128/79 03/20/18 18:26 99.1 F 112 H 18 128/79 03/20/18 17:06 98.5 F 121 H 20 143/76 Pulse Ox 03/21/18 07:34 98 03/21/18 05:55 98 03/21/18 05:44 98 03/20/18 21:47 93 L 03/20/18 20:32 03/20/18 19:46 97 03/20/18 19:02 98 03/20/18 18:26 98 03/20/18 17:06 95 - General General Appearance: Alert, Oriented x3, Cooperative, No acute distress - Head Head exam: Normal inspection - Eye Eye exam: Normal appearance, PERRL Pupils: Normal accommodation - ENT ENT exam: Normal exam, Mucous membranes moist, Normal external ear exam, Normal orophraynx, TM's normal bilaterally Ear exam: Normal external inspection. negative: External canal tenderness Nasal Exam: Normal inspection. negative: Discharge, Sinus tenderness Mouth exam: Normal external inspection, Tongue normal Teeth exam: Normal inspection. negative: Dental caries Throat exam: Normal inspection. negative: Tonsillar erythema, Tonsillar exudate - Neck Neck exam: Normal inspection, Full ROM. negative: Tenderness - Respiratory Respiratory exam: Normal lung sounds bilaterally. negative: Respiratory distress - Cardiovascular Cardiovascular Exam: Regular rate, Normal rhythm, Normal heart sounds - GI/Abdominal GI/Abdominal exam: Soft, Normal bowel sounds. negative: Tenderness - Rectal Rectal exam: Deferred - exam: Deferred - Extremities Extremities exam: Normal inspection, Full ROM, Normal capillary refill. negative: Tenderness - Back Back exam: Reports: Normal inspection, Full ROM. Denies: Muscle spasm, Rash noted, Tenderness - Neurological Neurological exam: Alert, Normal gait, Oriented X3, Reflexes normal - Psychiatric Psychiatric exam: Normal affect, Normal mood - Skin Skin exam: Dry, Intact, Normal color, Warm Hospitalization - Hospitalization Admission Diagnosis: UTI. sepsis. copd - Problem List/Discharge Diagnosis (1) UTI (urinary tract infection) Current Visit: Yes Status: Acute Discharge Diagnosis: Urinary tract infection type: acute cystitis Hematuria presence: without hematuria Qualified Code(s): N30.00 - Acute cystitis without hematuria Base Code: N39.0 - URINARY TRACT INFECTION, SITE NOT SPECIFIED Comment: 03/21/18: - UA + leukocytes, nitrites, WBCs 10-15 - BCX preliminary: no growth, UCX pending - Cipro 400mg Q12H IV, change to PO 500mg Q12H for another 6 days. - Follow up with PCP within 5-7 days with UA. (2) BPH (benign prostatic hyperplasia) Current Visit: Yes Status: Acute Base Code: N40.0 - BENIGN PROSTATIC HYPERPLASIA WITHOUT LOWER URINRY TRACT SYMP Comment: 03/21/18: - resume BID flomax 0.4mg. (3) Chronic atrial fibrillation Current Visit: Yes Status: Acute Base Code: I48.2 - CHRONIC ATRIAL FIBRILLATION Comment: 03/21/18: - no acute changes on cardiac tech. Tachycardia resolved. - Cardizem 240mg QHS, anticoagulated on Coumadin. (4) Anticoagulant long-term use Current Visit: Yes Status: Acute Base Code: Z79.01 - MATTRESS WEAVER (CURRENT) USE OF ANTICOAGULANTS Comment: 03/21/18: - Coumadin daily dosing per pharmacy. - PT/INR: 24.8/2.5 (5) DVT prophylaxis Current Visit: Yes Status: Acute Base Code: [id number] - Comment: 03/21/18: - pt on therapeutic dose of Coumadin for a fib. - dose adjust as per pharmacy. PT/INR monitoring. (6) Full code status Current Visit: Yes Status: Acute Base Code: Z78.9 - OTHER SPECIFIED HEALTH STATUS - Hospitalization Course Abnormal Labs: Abnormal Lab Results 03/20/18 03/20/18 03/20/18 Range/Units 17:25 17:25 17:25 WBC 12.8 H (4.2-12.2) K/uL Neutrophils % 84.0 H (47-80) % Lymphocytes 6.0 L (16-45) % PT (9.5-12.1) SECONDS Chloride 97 L (98-107) mmol/L Urine Nitrite Positive H (NEGATIVE) Ur Leukocyte Esterase Large H (NEGATIVE) 03/20/18 03/21/18 Range/Units 17:25 06:17 WBC (4.2-12.2) K/uL Neutrophils % (47-80) % Lymphocytes (16-45) % PT 22.8 H 24.8 H (9.5-12.1) SECONDS Chloride (98-107) mmol/L Urine Nitrite (NEGATIVE) Ur Leukocyte Esterase (NEGATIVE) Condition at Discharge: (2) Stable Discharge Medications - Discharge Medications Prescriptions: Ciprofloxacin HCl [Cipro] 500 mg PO Q12HR #12 tablet Home Medications: Ambulatory Orders Albuterol Sulfate [Proair Hfa] 1 - 2 puff IH .EVERY 4-6 HOURS PRN 09/17/14 [ Last Taken 03/20/18] Ascorbic Acid [Vitamin C] 500 mg PO DAILY 05/01/15 [Last Taken 03/20/18] Cholecalciferol (Vitamin D3) [Vitamin D3] 40 unit PO DAILY 08/16/16 [Last Taken 03/20/18] Cyanocobalamin (Vitamin B-12) [Vitamin B-12] 1 tab PO DAILY 08/16/16 [Last Taken 03/20/18] Multivitamin [Daily Multiple Vitamin] 1 each PO DAILY 08/16/16 [Last Taken 03/20] Warfarin Sodium 2.5 mg PO DAILY #30 tab 03/07/18 [Last Taken 03/20/18] Amitriptyline HCl 25 mg PO QHS 03/21/18 [Last Taken Unknown] Ciprofloxacin HCl [Cipro] 500 mg PO Q12HR #12 tablet 03/21/18 [Last Taken Unknown] Discharge Plan - Discharge Instructions Activity at Discharge: Resume Usual Activities As Tolerated Diet at Discharge: Low Fat, Low Cholesterol, Low Salt Diet Additional Instructions: Continue to take the antibiotics (Cipro 500mg) prescribed twice daily for the next 6 days. Follow up with Dr. Matson within 5-7 days of discharge. If you have return of symptoms please return to the ED. Quality Measures - Quality Measures Quality Measures: Atrial Fibrillation & Atrial Flutter: Chronic Anticoagulation Therapy, Advance Directives, Documentation of Current Medications in Medical Record, Elder Maltreatment Screen and Follow-Up Plan, Screening for High Blood Pressure and F/U Documented - Current Medications Quality Measure: Measure #130: Documentation of Current Medications Documentation of Current Medications: <Current Medications Documented/Reviewed> [[id number]] - Blood Pressure Screening Quality Measure: Screening for High Blood Pressure and Follow-Up Documented Does Patient Have Any of the Following: No Blood Pressure Classification: Pre-Hypertensive BP Reading Systolic Measurement: 128 Diastolic Measurement: 79 Screening for High Blood Pressure: < Pre-Hypertensive BP, F/U Documented > [ G8950] Pre-Hypertensive Follow-up Interventions: Follow-up with rescreen every year. - Atrial Fibrillation and Atrial Flutter Quality Measure: Atrial Fibrillation & Atrial Flutter: Chronic Anticoagulation Therapy Does Patient Have Any of the Following: No CHADS2 Risk Stratification: Prior Stroke/TIA or Systemic Embolism, Age 75 or Greater, Heart Failure or Impaired LVSF Risk Stratification Summary: One or more high risk factors OR more than one moderate risk factor exists. [G8972] Anticoagulation Therapy: <Oral anticoagulant Prescribed> [G8967] - Advance Directives Quality Measure: Measure #47: Care Plan Advance Directives Established: No Advance Directives Information Provided To Patient: Declined Advance Directives on File: No Living Will: Yes Power of Orthotic/Prosthetic Practitioner: Yes (step daughter) Power of Orthotic/Prosthetic Practitioner Name: Lilian Rowe Advance Care Planning: <Care Plan/Decision Maker Documented; Discussed & Documented> [[id number]] - Elder Abuse Suspicion Index Screening: Elder Abuse Suspicion Index Screening Rely on people for bathing, dressing, shopping, banking, etc: Yes Prevented from getting food, clothes, medication, etc: No Made to feel shamed or threatened by someone: No Forced to sign papers or use money against will: No Feel afraid, touched in ways not wanted or hurt physically: No Poor eye contact, withdrawn, malnourished, cuts or bruises: No Screening Result: Negative result EASI Reference Information: Lary CANO, Wendy Jimenez, Henna Chapa, Joe Arrieta.Development and validation of a tool to assist physicians identification of elder abuse: The Elder Abuse Suspicion Index (EASI ). Journal of Elder Abuse and Neglect, 2008; 20 (3): 276-300. - Elder Maltreatment Screen Quality Measures: Elder Maltreatment Screen and Follow-Up Plan Elder Maltreatment Screen: <Negative, No Follow-Up Plan Required> [G8734]
[2018-03-21] MEDS: CILOSTAZOL 50 MG PO SCH (14:04)
== END 2018-03-21 13:41 | disposition home or self-care (01) ==
LOC: ER 16:58 → MEDSURG 19:33 → INTOOBSV 19:33
PROVIDERS: ADMIT Internal Medicine; ATTEND Internal Medicine
DX: N30.00 Acute cystitis without hematuria (principal); A41.9 Sepsis, unspecified organism; G25.2 Other specified forms of tremor; J44.9 Chronic obstructive pulmonary disease, unspecified; I48.91 Unspecified atrial fibrillation; Z79.01 Long term (current) use of anticoagulants; N40.0 Benign prostatic hyperplasia without lower urinary tract symptoms; I73.9 Peripheral vascular disease, unspecified; R30.0 Dysuria; I95.9 Hypotension, unspecified; M19.90 Unspecified osteoarthritis, unspecified site; K21.9 Gastro-esophageal reflux disease without esophagitis; Z95.5 Presence of coronary angioplasty implant and graft; Z86.73 Personal history of transient ischemic attack (TIA), and cerebral infarction without residual deficits; Z87.891 Personal history of nicotine dependence
CPT/HCPCS: 80048; 81001; 85027; 85610; 94760; 96361; 96365; 99220; 99285; J7040

== ENCOUNTER 2018-08-15 16:59 | Observation (INO) | payer MEDICARE, BC ==
--- NOTE | 2018-08-15 17:38 | Emergency Department Record ---
History of Present Illness - General Chief Complaint: Fall Injury Stated Complaint: FALL INJURY Time Seen by Provider: 08/15/18 17:03 Source: Patient Mode of Arrival: Ambulatory Limitations: No limitations - History of Present Illness Initial Comments: pt fell and hit his head and had a loc. he is on coumadin. he denies any other injury MD Complaint: Fall Onset/Timin -: Hour(s) When Fall Occurred: 4-6 hours [employer] Fall Witnessed: No Place Fall Occurred: Home Loss of Consciousness: Yes Prolonged Down Time?: No Symptoms Prior to Fall: None Location: Head Severity: Moderate Quality: Aching Context: Tripped/slipped Associated Symptoms: Confusion - Steven Coma Scale Eye Response: (4) Open spontaneously Motor Response: (6) Obeys commands Verbal Response: (5) Oriented [place] Total: 15 - Related Data Allergies Allergy/AdvReac Type Severity Reaction Status Date / Time latex Allergy RASH Unverified 08/08/18 10:08 meperidine HCl [From Demerol] Allergy SWELLING Unverified 08/08/18 10:08 (GENERAL) Penicillins Allergy RASH Unverified 08/08/18 10:08 codeine AdvReac BODY ACHES Unverified 08/08/18 10:08 Tetanus Vaccines and Toxoid AdvReac BODY ACHES Unverified 08/08/18 10:08 [Tetanus Vaccines & Toxoid] Review of Systems Reviewed: No additional complaints except as noted below Constitutional: Reports: As per HPI. Denies: Chills, Fever, Malaise, Night sweats, Weakness, Weight change Eyes: Reports: As per HPI. Denies: Eye discharge, Eye pain, Photophobia, Vision change ENT: Reports: As per HPI. Denies: Congestion, Dental pain, Ear pain, Epistaxis , Hearing loss, Throat pain Respiratory: Reports: As per HPI. Denies: Cough, Dyspnea, Hemoptysis, Stridor, Wheezes Cardiovascular: Reports: As per HPI. Denies: Arrhythmia, Chest pain, Dyspnea on exertion, Edema, Murmurs, Orthopnea, Palpitations, Paroxysmal nocturnal dyspnea, Rheumatic Fever, Syncope Endocrine: Reports: As per HPI. Denies: Fatigue, Heat or cold intolerance, Polydipsia, Polyuria Gastrointestinal: Reports: As per HPI. Denies: Abdominal pain, Constipation, Diarrhea, Hematemesis, Hematochezia, Melena, Nausea, Vomiting Genitourinary: Reports: As per HPI. Denies: Dysuria, Frequency, Hematuria, Incontinence, Retention, Testicular pain, Testicular mass, Urgency Musculoskeletal: Reports: As per HPI. Denies: Arthralgia, Back pain, Gout, Joint swelling, Myalgia, Neck pain Skin: Reports: As per HPI. Denies: Bruising, Change in color, Change in hair/ nails, Lesions, Pruritus, Rash Neurological: Reports: As per HPI. Denies: Abnormal gait, Confusion, Headache, Numbness, Paresthesias, Seizure, Tingling, Tremors, Vertigo, Weakness Psychiatric: Reports: As per HPI. Denies: Anxiety, Auditory hallucinations, Depression, Homicidal thoughts, Suicidal thoughts, Visual hallucinations Hematological/Lymphatic: Reports: As per HPI. Denies: Anemia, Blood Clots, Easy bleeding, Easy bruising, Swollen glands Past Medical History - SOCIAL HISTORY Smoking Status: Former smoker Drug Use: None - RESPIRATORY Hx Respiratory Disorders: Yes Hx Bronchitis: Yes Hx COPD: Yes Hx Pneumonia: Yes Comment:: 3L O2 at night - CARDIOVASCULAR Hx Cardio Disorders: Yes Hx Abnormal EKG: Yes Hx Cardiac Cath: Yes Hx CHF: Yes Hx Heart Attack: Yes (after his stroke) Hx Hypotension: Yes Hx Irregular Heartbeat: Yes (A fib) Comment:: cardiac stents placed AND CURRENTLY ON COUMADIN - NEURO Hx Neuro Disorders: Yes Hx CVA: Yes (2003) Hx Weakness: Yes (LEFT SIDED WEAKNESS WITH SOME IMPROVEMENT AFTER) Comment:: WALKS WITH CANE - GI Hx GI Disorders: Yes Hx Reflux: Yes Hx of Polyps: Yes (POLYPS BENIGN) Comment:: STATES HAD BX DURING EGD AND HAD BLEED - Hx Genitourinary Disorders: Yes Hx Bladder Problem: Yes (UNABLE TO VOID) Comment:: INTERMITTENT ISSUES WITH INABILITY TO VOID FOR LAST SEVERAL MONTHS - ENDOCRINE Hx Endocrine Disorders: No - MUSCULOSKELETAL Hx Musculoskeletal Disorders: Yes Hx Arthritis: Yes - PSYCH Hx Psych Problems: Yes Hx Anxiety: Yes Hx Depression: Yes - HEMATOLOGY/ONCOLOGY Hx Hematology/Oncology Disorders: Yes Hx Clotting Problems: Yes (TAKES COUMADIN) Hx Blood Transfusions: Yes Hx Blood Transfusion Reaction: No Family Medical History Hx Alcohol Use: Father, Grandparents Hx Heart Disease: Mother, Brother/Sister Hx Stroke: Father Physical Exam - General General Appearance: Alert, Oriented x3, Cooperative, Mild distress - Head Head exam: Normal inspection Head exam detail: Contusion, General tenderness - Eye Eye exam: Normal appearance, PERRL, EOMI Pupils: Normal accommodation - ENT ENT exam: Normal exam, Mucous membranes moist, Normal external ear exam, Normal orophraynx Ear exam: Normal external inspection. negative: External canal tenderness Nasal Exam: Normal inspection. negative: Discharge, Sinus tenderness Mouth exam: Normal external inspection, Tongue normal Teeth exam: Normal inspection. negative: Dental caries Throat exam: Normal inspection. negative: Tonsillar erythema, Tonsillar exudate - Neck Neck exam: Normal inspection, Full ROM, Tenderness - Respiratory Respiratory exam: Normal lung sounds bilaterally. negative: Respiratory distress - Cardiovascular Cardiovascular Exam: Normal rhythm, Normal heart sounds, Tachycardia - GI/Abdominal GI/Abdominal exam: Soft, Normal bowel sounds. negative: Tenderness - Rectal Rectal exam: Deferred - exam: Deferred - Extremities Extremities exam: Normal inspection, Full ROM, Normal capillary refill. negative: Tenderness - Back Back exam: Reports: Normal inspection, Full ROM. Denies: Muscle spasm, Rash noted, Tenderness - Neurological Neurological exam: Alert, CN II-XII intact, Normal gait, Oriented X3 - Psychiatric Psychiatric exam: Normal affect, Normal mood - Skin Skin exam: Dry, Intact, Normal color, Warm Course Vital Signs 08/15/18 17:01 Temperature 97.9 F Pulse Rate 117 H Respiratory 18 Rate Blood Pressure 125/70 Pulse Ox 97 Medical Decision Making - Lab Data Result diagrams: 08/15/18 17:30 Disposition Disposition: Admit Clinical Impression: Anticoagulated on Coumadin Concussion Qualifiers: Encounter type: initial encounter Loss of consciousness presence/duration: with LOC of 30 min or less Qualified Code(s): S06.0X1A - Concussion with loss of consciousness of 30 minutes or less, initial encounter Disposition: Still a Patient at [facility] Decision to Admit: Admit from ER Decision to Admit Date: 08/15/18 Decision to Admit Time: 18:55 Forms: Patient Portal Access Quality - Quality Measures Quality Measures: N/A - Blood Pressure Screening Does Patient Have Any of the Following: No Blood Pressure Classification: Pre-Hypertensive BP Reading Systolic Measurement: 125 Diastolic Measurement: 70 Screening for High Blood Pressure: < Pre-Hypertensive BP, F/U Documented > [ [id number]] Pre-Hypertensive Follow-up Interventions: Follow-up with rescreen every year.
[2018-08-15 17:43] LABS: HEMATOCRIT 43.9 % (42.0-52.0); HEMOGLOBIN 14.4 gm/dl (14.0-18.0); MEAN CELL VOLUME 88.3 fl (81-97); MEAN CORPUSCULAR HGB CONC 32.8 g/dl (32-36); MEAN PLATELET VOLUME 9.1 fl (7.4-10.4); PLATELET COUNT 261 K/uL (130-400); RED BLOOD COUNT 4.97 M/uL (4.40-5.70); RED CELL DISTRIBUTION WIDTH 14.5 % (11.5-14.5); WHITE BLOOD COUNT W/O DIFF 6.9 K/uL (4.2-12.2)
[2018-08-15 17:55] LABS: INR 2.6; PROTHROMBIN TIME (PATIENT) 25.1 SECONDS (9.5-12.1)
[2018-08-15] MEDS ORDERED: ACETAMINOPHEN 500 MG TABLET PO PRN (20:38)
[2018-08-15] MEDS ORDERED: ALBUTEROL HFA 8 GM INHALER INH PRN (20:38)
[2018-08-15] MEDS: FUROSEMIDE 20 MG TABLET PO SCH (21:32)
[2018-08-15] MEDS ORDERED: CILOSTAZOL 50 MG PO SCH (22:00)
[2018-08-15] MEDS ORDERED: MAGNESIUM HYDROXIDE 30 ML UDC PO PRN (22:31)
[2018-08-15] MEDS: DOCUSATE SODIUM 100 MG CAPSULE PO SCH (22:44)
[2018-08-15] MEDS: GUAIFENESIN 600 MG TABCR PO SCH (22:45)
[2018-08-16] MEDS: ALBUTEROL SULFATE (0.083%) 2.5 MG/3 ML NEB INH SCH ×3 (04:20→09:43)
--- NOTE | 2018-08-16 07:59 | CT SCAN REPORT ---
EXAM: NONCONTRAST CT OF THE BRAIN HISTORY: RECENT FALL FROM STANDING, CONFUSION, PATIENT ON COUMADIN. HISTORY OF PRIOR STROKE. TECHNIQUE: Noncontrast CT of the brain was obtained. Comparison: CT of the brain 09/18/14. FINDINGS: No midline shift, mass effect, or new abnormal intra or extraaxial fluid collection. No cerebral edema, focal mass or intracranial hemorrhage detected. There is a large area of encephalomalacia in the right middle cerebral artery territory, involving the right frontal, parietal, and temporal lobes, similar from prior exam. Ex vacuo dilatation of the right lateral ventricle. The ventricle sizes are similar from comparison study. No evidence of displaced calvarial fracture. The visualized paranasal sinuses and mastoid air cells are clear. Chronic cavity in the left mastoid temporal bone, likely prior surgical site. IMPRESSION: 1. NO ACUTE INTRACRANIAL FINDINGS. 2. LARGE REGION OF ENCEPHALOMALACIA IN THE RIGHT MIDDLE CEREBRAL ARTERY TERRITORY, SIMILAR FROM PRIOR EXAMINATION. JOB NUMBER: [id number] MTDD
--- NOTE | 2018-08-16 08:04 | CT SCAN REPORT ---
EXAM: CT OF THE CERVICAL SPINE WITHOUT CONTRAST HISTORY: FALL FROM STANDING. TECHNIQUE: Noncontrast CT of the cervical spine was obtained. Comparison: Cervical spine radiographs 10/12/17. FINDINGS: No acute fracture detected. No evidence of dislocation. Minimal anterolisthesis at C2-C3, C5-C6 and C7-T1, likely degenerative in nature. Advanced disk degenerative with significant height loss and end plate sclerosis with osteophytes at C3-C4. Advanced multi-level facet joint arthrosis with areas of bridging ossification. Bilateral neural foraminal stenosis at multiple levels. Likely central spinal canal narrowing at C3-C4. Bilateral carotid artery calcifications. IMPRESSION: 1. NO ACUTE CERVICAL SPINE FRACTURE OR DISLOCATION IS DETECTED. 2. MULTILEVEL CERVICAL SPINE DEGENERATIVE FINDINGS, ABOVE. JOB NUMBER: [id number] [facility]
--- NOTE | 2018-08-16 09:52 | History & Physical ---
History of Present Illness - Date of Service Date of Service for History & Physical: 08/16/18 - History of Present Illness Admitting Diagnosis: concussion, on coumadin History of Present Illness: Mr. Jason is a 77 y/o male who presented to the ED yesterday after falling in his bathroom at home. The patient says that he was having a cough and passed out and fell. He says that he did hit the back of his head and says that he was "out of it" for a few minutes and had a headache but did not have any bleeding. He denies feeling lightheaded, dizzy or having chest pain. The patient is on anticoagulation with Coumadin for his chronic atrial fibrillation. On arrival to the ED the patient did have a CT of the head which was negative for acute bleeding and his labs were within normal limits. The patient was admitted for observation due to his traumatic fall and being on anticoagulation. On examination this morning he does complain of cough with yellow sputum production but has no headaches or neurological complaint. Travel Screening - Travel/Exposure Within Last 30 Days Have you traveled within the last 30 days?: Yes Location Detail:: [place] - Travel/Exposure Within Last Year Have you traveled outside the [place] in the last year?: No - Additonal Travel Details Have you been exposed to anyone with a communicable illness?: No - Travel Symptoms Symptom Screening: None Review of Systems Constitutional: Reports: As per HPI. Denies: Chills, Fever, Malaise, Night sweats, Weakness, Weight change Eyes: Reports: As per HPI. Denies: Eye discharge, Eye pain, Photophobia, Vision change ENT: Reports: As per HPI. Denies: Congestion, Dental pain, Ear pain, Epistaxis , Hearing loss, Throat pain Respiratory: Reports: As per HPI. Denies: Cough, Dyspnea, Hemoptysis, Stridor, Wheezes Cardiovascular: Reports: As per HPI. Denies: Arrhythmia, Chest pain, Dyspnea on exertion, Edema, Murmurs, Orthopnea, Palpitations, Paroxysmal nocturnal dyspnea, Rheumatic Fever, Syncope Endocrine: Reports: As per HPI. Denies: Fatigue, Heat or cold intolerance, Polydipsia, Polyuria Gastrointestinal: Reports: As per HPI. Denies: Abdominal pain, Constipation, Diarrhea, Hematemesis, Hematochezia, Melena, Nausea, Vomiting Genitourinary: Reports: As per HPI. Denies: Dysuria, Frequency, Hematuria, Incontinence, Retention, Testicular pain, Testicular mass, Urgency Musculoskeletal: Reports: As per HPI. Denies: Arthralgia, Back pain, Gout, Joint swelling, Myalgia, Neck pain Skin: Reports: As per HPI. Denies: Bruising, Change in color, Change in hair/ nails, Lesions, Pruritus, Rash Neurological: Reports: As per HPI. Denies: Abnormal gait, Confusion, Headache, Numbness, Paresthesias, Seizure, Tingling, Tremors, Vertigo, Weakness Psychiatric: Reports: As per HPI. Denies: Anxiety, Auditory hallucinations, Depression, Homicidal thoughts, Suicidal thoughts, Visual hallucinations Hematological/Lymphatic: Reports: As per HPI. Denies: Anemia, Blood Clots, Easy bleeding, Easy bruising, Swollen glands Past Medical History - SOCIAL HISTORY Smoking Status: Former smoker Alcohol Use: None Drug Use: None - RESPIRATORY Hx Respiratory Disorders: Yes Hx Bronchitis: Yes Hx COPD: Yes Hx Pneumonia: Yes Comment:: 3L O2 at night - not currently using - CARDIOVASCULAR Hx Cardio Disorders: Yes Hx Abnormal EKG: Yes Hx Cardiac Cath: Yes Hx CHF: Yes Hx Edema: Yes Hx Heart Attack: Yes (after his stroke) Hx Hypotension: Yes Hx Irregular Heartbeat: Yes (A fib) Comment:: cardiac stents placed AND CURRENTLY ON COUMADIN - NEURO Hx Neuro Disorders: Yes Hx CVA: Yes (2003) Hx Weakness: Yes (LEFT SIDED WEAKNESS WITH SOME IMPROVEMENT AFTER) Comment:: WALKS WITH CANE - GI Hx GI Disorders: Yes Hx Reflux: Yes Hx of Polyps: Yes (POLYPS BENIGN) Comment:: STATES HAD BX DURING EGD AND HAD BLEED - Hx Genitourinary Disorders: Yes Hx Bladder Problem: Yes (UNABLE TO VOID) Hx Prostate Problems: Yes (BPH) Comment:: INTERMITTENT ISSUES WITH INABILITY TO VOID FOR LAST SEVERAL MONTHS - ENDOCRINE Hx Endocrine Disorders: No - MUSCULOSKELETAL Hx Musculoskeletal Disorders: Yes Hx Arthritis: Yes - PSYCH Hx Psych Problems: Yes Hx Anxiety: Yes Hx Depression: Yes - HEMATOLOGY/ONCOLOGY Hx Hematology/Oncology Disorders: Yes Hx Clotting Problems: Yes (TAKES COUMADIN) Hx Blood Transfusions: Yes Hx Blood Transfusion Reaction: No Family Medical History Any Significant Family History?: Yes Hx Alcohol Use: Father, Brother/Sister, Grandparents Hx Diabetes: Brother/Sister Hx Heart Disease: Mother, Brother/Sister Hx HTN: Father Hx Liver Disease: Brother/Sister Hx Stroke: Father H&P Meds/Allergies - Allergies Allergies: Allergies Allergy/AdvReac Type Severity Reaction Status Date / Time latex Allergy RASH Unverified 08/08/18 10:08 meperidine HCl [From Demerol] Allergy SWELLING Unverified 08/08/18 10:08 (GENERAL) Penicillins Allergy RASH Unverified 08/08/18 10:08 codeine AdvReac BODY ACHES Unverified 08/08/18 10:08 Tetanus Vaccines and Toxoid AdvReac BODY ACHES Unverified 08/08/18 10:08 [Tetanus Vaccines & Toxoid] - Active Medications Active Medications: Current Medications Acetaminophen (Tylenol 500mg Tab) 1,000 mg PO Q6H PRN PRN Reason: PAIN - MILD(1-4)/FEVER Albuterol Sulfate (Ventolin Hfa) 1 - 2 puff INH .EVERY 4-6 HOURS PRN PRN Reason: DIFFICULTY IN BREATHING Albuterol Sulfate (Albuterol Sulfate) 2.5 mg INH RESP.Q4H.[facility] Last Admin: 08/16/18 09:43 Dose: 2.5 mg Amitriptyline HCl (Elavil) 25 mg PO QHS [facility] Diltiazem HCl (Cardizem Cd) 240 mg PO QHS [facility] Docusate Sodium (Colace) 100 mg PO BID [facility] Last Admin: 08/15/18 22:44 Dose: 100 mg Furosemide (Lasix) 20 mg PO BID [facility] Last Admin: 08/15/18 21:32 Dose: 20 mg Guaifenesin (Mucinex) 600 mg PO BID [facility] Last Admin: 08/15/18 22:45 Dose: 600 mg Magnesium Hydroxide (Milk Of Magnesium) 30 ml PO DAILY PRN PRN Reason: INDIGESTION Last Admin: 08/15/18 22:44 Dose: 30 ml Pantoprazole Sodium (Protonix) 40 mg PO DAILY [facility] Cilostazol [ (Cilostazol] 50 Mg) 50 each PO BID [facility] Last Admin: 08/15/18 21:32 Dose: Not Given Potassium Chloride (Klor-Con) 20 meq PO DAILY [facility] Physical Exam - Vital Signs Vital Signs: Vital Signs - Last 24 Hrs Temp Pulse Pulse Pulse Resp BP BP 04/05/19 08:15 97.7 F 94 H 16 137/80 08/16/18 06:05 94 H 20 08/16/18 06:00 98.6 F 99 H 22 137/86 08/16/18 04:21 104 H 18 08/16/18 00:00 98.1 F 103 H 22 123/78 08/15/18 21:51 98.5 F 104 H 22 144/84 08/15/18 21:00 22 08/15/18 17:01 97.9 F 117 H 18 125/70 Pulse Ox 08/16/18 08:15 97 08/16/18 06:05 96 08/16/18 06:00 96 08/16/18 04:21 97 08/16/18 00:00 96 08/15/18 21:51 97 08/15/18 21:00 08/15/18 17:01 97 - General General Appearance: Alert, Oriented x3, Cooperative, Mild distress Limitations: No limitations - Head Head exam: Normal inspection Head exam detail: Contusion, General tenderness - Eye Eye exam: Normal appearance, PERRL, EOMI Pupils: Normal accommodation - ENT ENT exam: Normal exam, Mucous membranes moist, Normal external ear exam, Normal orophraynx Ear exam: Normal external inspection. negative: External canal tenderness Nasal Exam: Normal inspection. negative: Discharge, Sinus tenderness Mouth exam: Normal external inspection, Tongue normal Teeth exam: Normal inspection. negative: Dental caries Throat exam: Normal inspection. negative: Tonsillar erythema, Tonsillar exudate - Neck Neck exam: Normal inspection, Full ROM, Tenderness - Respiratory Respiratory exam: Normal lung sounds bilaterally. negative: Respiratory distress - Cardiovascular Cardiovascular Exam: Normal rhythm, Normal heart sounds, Tachycardia Peripheral Pulses: 3+: Radial (R), Radial (L), Dorsalis Pedis (R), Dorsalis Pedis (L) - GI/Abdominal GI/Abdominal exam: Soft, Normal bowel sounds. negative: Tenderness - Rectal Rectal exam: Deferred - exam: Deferred - Extremities Extremities exam: Normal inspection, Full ROM, Normal capillary refill. negative: Tenderness - Back Back exam: Reports: Normal inspection, Full ROM. Denies: Muscle spasm, Rash noted, Tenderness - Neurological Neurological exam: Alert, CN II-XII intact, Normal gait, Oriented X3 - Psychiatric Psychiatric exam: Normal affect, Normal mood - Skin Skin exam: Dry, Intact, Normal color, Warm Results - Labs Result Diagrams: 08/15/18 17:30 Labs Last 24 Hours: Laboratory Results - last 24 hr 08/15/18 08/15/18 17:30 17:30 WBC 6.9 RBC 4.97 Hgb 14.4 Hct 43.9 MCV 88.3 MCH 29.0 MCHC 32.8 RDW 14.5 Plt Count 261 MPV 9.1 Neutrophils % 77.0 Eosinophils % Not Reportable Basophils % Not Reportable Lymphocytes 17.0 Monocytes 5.0 Eosinophil Count 1.0 PT 25.1 H INR 2.6 APTT 39.0 VTE H&P Assessment - Risk for VTE Risk for VTE: Yes Risk Level: High Risk Assessment Date: 08/16/18 Risk Assessment Time: 09:55 VTE Orders Placed or Will Be Placed: Yes Plan - Detailed Diagnosis and Plan (1) Concussion Current Visit: Yes Status: Acute Qualifiers: Encounter type: initial encounter Loss of consciousness presence/duration: with LOC of 30 min or less Qualified Code(s): S06.0X1A - Concussion with loss of consciousness of 30 minutes or less, initial encounter Base Code: S06.0X9A - CONCUSSION W LOSS OF CONSCIOUSNESS OF UNSP DURATION, INIT Comment: 08/16/18: - Head injury due to fall at home. - CT head w/o contrast X 2 no evidence of acute bleed. May resume Warfarin dose as per pharmacy protocol. - Tylenol 500mg Q4H PRN for headaches. - Q2 neuro checks over night, negative for deficits. (2) Chronic bronchitis Current Visit: Yes Status: Acute Base Code: J42 - UNSPECIFIED CHRONIC BRONCHITIS Comment: 08/16/18: - Completed course of prednisone and doxycycline last week. - Will start on Zithromax 250mg QD for the next 7 days. Coumadin dose adjustment as per pharmacy. INR check within 1 week. (3) Chronic atrial fibrillation Current Visit: No Status: Acute Base Code: I48.2 - CHRONIC ATRIAL FIBRILLATION Comment: 08/16/18: - Cardizem 240mg QHS, anticoagulated on Coumadin. (4) DVT prophylaxis Current Visit: No Status: Acute Base Code: [id number] - Comment: 08/16/18: - On therapeutic dose of Coumadin for chronic a fib. - PT/INR 25.1/2.6 (5) Full code status Current Visit: No Status: Acute Base Code: Z78.9 - OTHER SPECIFIED HEALTH STATUS Comment: 08/16/18: - The patient is full code. - Disposition DC home today.
[2018-08-16] MEDS: FUROSEMIDE 20 MG TABLET PO SCH (09:56)
[2018-08-16] MEDS: DOCUSATE SODIUM 100 MG CAPSULE PO SCH (09:56)
[2018-08-16] MEDS: GUAIFENESIN 600 MG TABCR PO SCH (09:57)
[2018-08-16] MEDS ORDERED: POTASSIUM CHLORIDE 20 MEQ TABLET PO SCH (10:00)
[2018-08-16] MEDS ORDERED: UMECLIDINIUM BROMIDE (INCRUSE) 62.5MCG IH SCH (10:00)
[2018-08-16] MEDS ORDERED: PANTOPRAZOLE SODIUM 40 MG TABLET PO SCH (10:00)
--- NOTE | 2018-08-16 10:11 | Discharge Summary ---
Providers Discharge Summary Date: 08/16/18 Date of admission: 08/15/18 20:35 Attending physician: GUANAKITO MATSON Primary care physician: GUANAKITO MATSON Physical Exam - Vital Signs Vital Signs: Vital Signs - Last 24 Hrs Temp Pulse Pulse Pulse Resp BP BP 08/16/18 09:45 88 18 08/16/18 08:15 97.7 F 94 H 16 137/80 08/16/18 06:05 94 H 20 08/16/18 06:00 98.6 F 99 H 22 137/86 08/16/18 04:21 104 H 18 08/16/18 00:00 98.1 F 103 H 22 123/78 08/15/18 21:51 98.5 F 104 H 22 144/84 08/15/18 21:00 22 08/15/18 17:01 97.9 F 117 H 18 125/70 Pulse Ox 08/16/18 09:45 98 08/16/18 08:15 97 08/16/18 06:05 96 08/16/18 06:00 96 08/16/18 04:21 97 08/16/18 00:00 96 08/15/18 21:51 97 08/15/18 21:00 08/15/18 17:01 97 - General General Appearance: Alert, Oriented x3, Cooperative, Mild distress Limitations: No limitations - Head Head exam: Normal inspection Head exam detail: Contusion, General tenderness - Eye Eye exam: Normal appearance, PERRL, EOMI Pupils: Normal accommodation - ENT ENT exam: Normal exam, Mucous membranes moist, Normal external ear exam, Normal orophraynx Ear exam: Normal external inspection. negative: External canal tenderness Nasal Exam: Normal inspection. negative: Discharge, Sinus tenderness Mouth exam: Normal external inspection, Tongue normal Teeth exam: Normal inspection. negative: Dental caries Throat exam: Normal inspection. negative: Tonsillar erythema, Tonsillar exudate - Neck Neck exam: Normal inspection, Full ROM, Tenderness - Respiratory Respiratory exam: Normal lung sounds bilaterally. negative: Respiratory distress - Cardiovascular Cardiovascular Exam: Normal rhythm, Normal heart sounds, Tachycardia Peripheral Pulses: 3+: Radial (R), Radial (L), Dorsalis Pedis (R), Dorsalis Pedis (L) - GI/Abdominal GI/Abdominal exam: Soft, Normal bowel sounds. negative: Tenderness - Rectal Rectal exam: Deferred - exam: Deferred - Extremities Extremities exam: Normal inspection, Full ROM, Normal capillary refill. negative: Tenderness - Back Back exam: Reports: Normal inspection, Full ROM. Denies: Muscle spasm, Rash noted, Tenderness - Neurological Neurological exam: Alert, CN II-XII intact, Normal gait, Oriented X3 - Psychiatric Psychiatric exam: Normal affect, Normal mood - Skin Skin exam: Dry, Intact, Normal color, Warm Hospitalization - Hospitalization Admission Diagnosis: concussion, on coumadin - Problem List/Discharge Diagnosis (1) Concussion Current Visit: Yes Status: Acute Discharge Diagnosis: Encounter type: initial encounter Loss of consciousness presence/duration: with LOC of 30 min or less Qualified Code(s): S06.0X1A - Concussion with loss of consciousness of 30 minutes or less, initial encounter Base Code: S06.0X9A - CONCUSSION W LOSS OF CONSCIOUSNESS OF UNSP DURATION, INIT Comment: 08/16/18: - Head injury due to fall at home. - CT head w/o contrast X 2 no evidence of acute bleed. May resume Warfarin dose as per pharmacy protocol. - Tylenol 500mg Q4H PRN for headaches. - Q2 neuro checks over night, negative for deficits. (2) Chronic bronchitis Current Visit: Yes Status: Acute Base Code: J42 - UNSPECIFIED CHRONIC BRONCHITIS Comment: 08/16/18: - Completed course of prednisone and doxycycline last week. - Will start on Zithromax 250mg QD for the next 7 days. Coumadin dose adjustment as per pharmacy. INR check within 1 week. (3) Chronic atrial fibrillation Current Visit: No Status: Acute Base Code: I48.2 - CHRONIC ATRIAL FIBRILLATION Comment: 08/16/18: - Cardizem 240mg QHS, anticoagulated on Coumadin. (4) DVT prophylaxis Current Visit: No Status: Acute Base Code: [id number] - Comment: 08/16/18: - On therapeutic dose of Coumadin for chronic a fib. - PT/INR 25.1/2.6 (5) Full code status Current Visit: No Status: Acute Base Code: Z78.9 - OTHER SPECIFIED HEALTH STATUS Comment: 08/16/18: - The patient is full code. - Disposition DC home today. - Hospitalization Course Hospital Course: Mr. Jason is a 77 y/o male who presented to the ED yesterday after falling in his bathroom at home. The patient says that he was having a cough and passed out and fell. He says that he did hit the back of his head and says that he was "out of it" for a few minutes and had a headache but did not have any bleeding. He denies feeling lightheaded, dizzy or having chest pain. The patient is on anticoagulation with Coumadin for his chronic atrial fibrillation. On arrival to the ED the patient did have a CT of the head which was negative for acute bleeding and his labs were within normal limits. The patient was admitted for observation due to his traumatic fall and being on anticoagulation. On examination this morning he does complain of cough with yellow sputum production but has no headaches or neurological complaint. Procedures: Imaging and X-Rays 08/15/18 17:03 HEAD WO CONTRAST [CT] Stat 08/15/18 17:44 CERVICAL SPINE WO CONTRAST [CT] Stat 08/16/18 06:00 HEAD WO CONTRAST [CT] [id number] Cardiology Procedures 08/15/18 17:24 EKG NOW Abnormal Labs: Abnormal Lab Results 08/15/18 Range/Units 17:30 PT 25.1 H (9.5-12.1) SECONDS Condition at Discharge: (2) Stable Discharge Medications - Discharge Medications Prescriptions: Acetaminophen [Tylenol 500Mg Tab] 1,000 mg PO Q6H PRN #14 tablet PRN Reason: Pain - Mild(1-4)/Fever Azithromycin [Zithromax] 250 mg PO DAILY #7 tab Guaifenesin [Mucinex] 600 mg PO BID #14 tabcr Home Medications: Ambulatory Orders Albuterol Sulfate [Proair Hfa] 1 - 2 puff IH .EVERY 4-6 HOURS PRN 09/17/14 [ Last Taken 08/15/18] Ascorbic Acid [Vitamin C] 500 mg PO DAILY 05/01/15 [Last Taken 03/20/18] Cholecalciferol (Vitamin D3) [Vitamin D3] 40 unit PO DAILY 08/16/16 [Last Taken 03/20/18] Cyanocobalamin (Vitamin B-12) [Vitamin B-12] 1 tab PO DAILY 08/16/16 [Last Taken 03/20/18] Multivitamin [Daily Multiple Vitamin] 1 each PO DAILY 08/16/16 [Last Taken 03/20] Acetaminophen [Tylenol 500Mg Tab] 1,000 mg PO Q6H PRN #14 tablet 08/16/18 [Last Taken Unknown] Azithromycin [Zithromax] 250 mg PO DAILY #7 tab 08/16/18 [Last Taken Unknown] Guaifenesin [Mucinex] 600 mg PO BID #14 tabcr 08/16/18 [Last Taken Unknown] Discharge Plan - Discharge Instructions Activity at Discharge: Resume Usual Activities As Tolerated Diet at Discharge: Regular Diet, Low Salt Diet Additional Instructions: Resume you Coumadin as instructed per pharmacy. Begin taking Azithromycin 250mg daily for the next 1 week. Have your INR checked in 1 week. Follow up with Dr. Matson on August 30. If you have new concerns or increasing headache please return to the ED. Quality Measures - Quality Measures Quality Measures: Atrial Fibrillation & Atrial Flutter: Chronic Anticoagulation Therapy, Advance Directives, Documentation of Current Medications in Medical Record, Elder Maltreatment Screen and Follow-Up Plan, Screening for High Blood Pressure and F/U Documented - Current Medications Quality Measure: Measure #130: Documentation of Current Medications Documentation of Current Medications: <Current Medications Documented/Reviewed> [G8495] - Blood Pressure Screening Quality Measure: Screening for High Blood Pressure and Follow-Up Documented Does Patient Have Any of the Following: No Blood Pressure Classification: Pre-Hypertensive BP Reading Systolic Measurement: 125 Diastolic Measurement: 70 Screening for High Blood Pressure: < Pre-Hypertensive BP, F/U Documented > [ G8950] Pre-Hypertensive Follow-up Interventions: Follow-up with rescreen every year. - Atrial Fibrillation and Atrial Flutter Quality Measure: Atrial Fibrillation & Atrial Flutter: Chronic Anticoagulation Therapy Does Patient Have Any of the Following: No CHADS2 Risk Stratification: Prior Stroke/TIA or Systemic Embolism, Age 75 or Greater, Heart Failure or Impaired LVSF Risk Stratification Summary: One or more high risk factors OR more than one moderate risk factor exists. [G8972] Anticoagulation Therapy: <Oral anticoagulant Prescribed> [G8967] - Advance Directives Quality Measure: Measure #47: Care Plan Advance Directives Established: No Advance Directives Information Provided To Patient: Declined Advance Directives on File: No Living Will: Yes Power of Shuttle Car Operator: Yes (step daughter) Power of Shuttle Car Operator Name: Lilian Rowe Advance Care Planning: <Care Plan/Decision Maker Documented; Discussed & Documented> [7523F] - Elder Abuse Suspicion Index Screening: Elder Abuse Suspicion Index Screening Rely on people for bathing, dressing, shopping, banking, etc: No Prevented from getting food, clothes, medication, etc: No Made to feel shamed or threatened by someone: No Forced to sign papers or use money against will: No Feel afraid, touched in ways not wanted or hurt physically: No Poor eye contact, withdrawn, malnourished, cuts or bruises: No Screening Result: Negative result EASI Reference Information: Lary CANO, Wendy C, Henna Chapa, Joe Arrieta.Development and validation of a tool to assist physicians identification of elder abuse: The Elder Abuse Suspicion Index (EASI ). Journal of Elder Abuse and Neglect, 2008; 20 (3): 276-300. - Elder Maltreatment Screen Quality Measures: Elder Maltreatment Screen and Follow-Up Plan Elder Maltreatment Screen: <Negative, No Follow-Up Plan Required> [T1210]
[2018-08-16] MEDS ORDERED: AZITHROMYCIN 250 MG TABLET PO SCH (10:15)
[2018-08-16] MEDS ORDERED: AMITRIPTYLINE 25 MG TABLET PO SCH (22:00)
[2018-08-16] MEDS ORDERED: DILTIAZEM HCL 120 MG ER CAPSULE PO SCH (22:00)
--- NOTE | 2018-08-20 06:30 | CT SCAN REPORT ---
EXAM: NONCONTRAST CT OF THE BRAIN HISTORY: FOLLOW-UP HEADACHE. TECHNIQUE: Noncontrast CT of the brain was obtained. Comparison: CT of the brain 08/15/18. FINDINGS: No midline shift, mass effect, or new abnormal intra or extraaxial fluid collection. No cerebral edema, focal mass or intracranial hemorrhage detected. Large area of right cerebral hemisphere encephalomalacia similar from prior. The ventricle sizes are stable. No displaced calvarial fracture detected. IMPRESSION: NO ACUTE INTRACRANIAL FINDINGS. JOB NUMBER: [id number] [facility]
== END 2018-08-16 11:38 | disposition home or self-care (01) ==
LOC: ER 16:59 → MEDSURG 20:35
PROVIDERS: ADMIT Internal Medicine; ATTEND Internal Medicine
DX: J42 Unspecified chronic bronchitis (principal); R05 Cough; J44.9 Chronic obstructive pulmonary disease, unspecified; I50.9 Heart failure, unspecified; I48.2 Chronic atrial fibrillation; Z79.01 Long term (current) use of anticoagulants; K21.9 Gastro-esophageal reflux disease without esophagitis; M19.90 Unspecified osteoarthritis, unspecified site; Z87.891 Personal history of nicotine dependence; Z95.5 Presence of coronary angioplasty implant and graft; Z95.811 Presence of heart assist device; Z86.73 Personal history of transient ischemic attack (TIA), and cerebral infarction without residual deficits; W18.30XA Fall on same level, unspecified, initial encounter
CPT/HCPCS: 70450; 72125; 85027; 85610; 85730; 93005; 93010; 94640; 99220; 99285; J7613

== ENCOUNTER 2019-03-15 12:25 | Emergency (ER) | payer MEDICARE, BC ==
[2019-03-15 12:51] LABS: HEMATOCRIT 41.9 % (42.0-52.0); HEMOGLOBIN 13.2 gm/dl (14.0-18.0); MEAN CELL VOLUME 88.8 fl (81-97); MEAN CORPUSCULAR HGB CONC 31.5 g/dl (32-36); MEAN PLATELET VOLUME 8.8 fl (7.4-10.4); PLATELET COUNT 197 K/uL (130-400); RED BLOOD COUNT 4.72 M/uL (4.40-5.70); RED CELL DISTRIBUTION WIDTH 13.6 % (11.5-14.5); WHITE BLOOD COUNT W/O DIFF 5.3 K/uL (4.2-12.2)
[2019-03-15 12:55] LABS: MEAN CORPUSCULAR HEMOGLOBIN 27.9 pg (27-33)
--- NOTE | 2019-03-15 13:00 | Emergency Department Record ---
History of Present Illness - General Chief Complaint: Cough Stated Complaint: COUGH Time Seen by Provider: 03/15/19 12:35 Source: Patient Mode of Arrival: Ambulatory Limitations: No limitations - History of Present Illness Initial Comments: The patient is here due to a dry cough and mild SOB for 5 days. He also has had a runny nose but denies any CP, sputum production, fever, or weakness. The patient does have a hx of COPD and does use inhallers at home. MD Complaint: Cough, Nasal congestion Onset/Timin -: Days(s) Severity: Mild, Moderate Severity scale (1-10): 2 Consistency: Constant - Related Data Home Medications Medication Instructions Recorded Confirmed Last Taken Amitriptyline HCl 25 mg PO DAILY 03/15/19 03/15/19 1 Day Ago ~03/14/19 Apixaban [Eliquis] 5 mg PO BID 03/15/19 03/15/19 1 Day Ago ~03/14/19 Escitalopram Oxalate [Lexapro] 10 mg PO DAILY 03/15/19 03/15/19 1 Day Ago ~03/14/19 Lorazepam [Ativan] 0.5 mg PO BID PRN 03/15/19 03/15/19 1 Day Ago ~03/14/19 Magnesium Oxide [Magnesium] 250 mg PO DAILY 03/15/19 03/15/19 1 Day Ago ~03/14/19 Omeprazole 20 mg PO DAILY 03/15/19 03/15/19 1 Day Ago ~03/14/19 Raloxifene HCl 60 mg PO DAILY 03/15/19 03/15/19 1 Day Ago ~03/14/19 Roflumilast [Daliresp] 250 mcg PO DAILY 03/15/19 03/15/19 1 Day Ago ~03/14/19 Verapamil HCl [Verapamil ER] 120 mg PO DAILY 03/15/19 03/15/19 1 Day Ago ~03/14/19 Previous Rx's Medication Instructions Recorded Albuterol Sulfate 0.083% [Neb] 3 ml NEB .EVERY 4-6 HOURS PRN #1 ml 03/15/19 [Albuterol Sulfate] Prednisone [Prednisone 20Mg] 40 mg PO DAILY #8 tab 03/15/19 Allergies Allergy/AdvReac Type Severity Reaction Status Date / Time latex Allergy RASH Verified 03/15/19 12:34 meperidine HCl [From Demerol] Allergy SWELLING Verified 03/15/19 12:34 (GENERAL) Penicillins Allergy RASH Verified 03/15/19 12:34 codeine AdvReac BODY ACHES Verified 03/15/19 12:34 Tetanus Vaccines and Toxoid AdvReac BODY ACHES Verified 03/15/19 12:34 [Tetanus Vaccines & Toxoid] Travel Screening - Travel/Exposure Within Last 30 Days Have you traveled within the last 30 days?: No - Travel/Exposure Within Last Year Have you traveled outside the [place] in the last year?: No - Additonal Travel Details Have you been exposed to anyone with a communicable illness?: No - Travel Symptoms Symptom Screening: None Review of Systems Constitutional: Denies: Chills, Fever Eyes: Denies: Eye discharge ENT: Denies: Congestion Respiratory: Reports: Cough, Dyspnea. Denies: Hemoptysis Cardiovascular: Denies: Arrhythmia Endocrine: Reports: Fatigue Gastrointestinal: Denies: Diarrhea Genitourinary: Denies: Discharge Musculoskeletal: Denies: Arthralgia Past Medical History - SOCIAL HISTORY Smoking Status: Former smoker Alcohol Use: None Drug Use: None - RESPIRATORY Hx Respiratory Disorders: Yes Hx Bronchitis: Yes Hx COPD: Yes Hx Pneumonia: Yes Comment:: 3L O2 at night - not currently using - CARDIOVASCULAR Hx Cardio Disorders: Yes Hx Abnormal EKG: Yes Hx Cardiac Cath: Yes Hx CHF: Yes Hx Edema: Yes Hx Heart Attack: Yes (after his stroke) Hx Hypotension: Yes Hx Irregular Heartbeat: Yes (A fib) Comment:: cardiac stents placed AND CURRENTLY ON COUMADIN - NEURO Hx Neuro Disorders: Yes Hx CVA: Yes (2003) Hx Weakness: Yes (LEFT SIDED WEAKNESS WITH SOME IMPROVEMENT AFTER) Comment:: WALKS WITH CANE - GI Hx GI Disorders: Yes Hx Reflux: Yes Hx of Polyps: Yes (POLYPS BENIGN) Comment:: STATES HAD BX DURING EGD AND HAD BLEED - Hx Genitourinary Disorders: Yes Hx Bladder Problem: Yes (UNABLE TO VOID) Hx Prostate Problems: Yes (BPH) Comment:: INTERMITTENT ISSUES WITH INABILITY TO VOID FOR LAST SEVERAL MONTHS - ENDOCRINE Hx Endocrine Disorders: No - MUSCULOSKELETAL Hx Musculoskeletal Disorders: Yes Hx Arthritis: Yes - PSYCH Hx Psych Problems: Yes Hx Anxiety: Yes Hx Depression: Yes - HEMATOLOGY/ONCOLOGY Hx Hematology/Oncology Disorders: Yes Hx Clotting Problems: Yes (TAKES COUMADIN) Hx Blood Transfusions: Yes Hx Blood Transfusion Reaction: No Family Medical History Any Significant Family History?: Yes Hx Alcohol Use: Father, Brother/Sister, Grandparents Hx Diabetes: Brother/Sister Hx Heart Disease: Mother, Brother/Sister Hx HTN: Father Hx Liver Disease: Brother/Sister Hx Stroke: Father Physical Exam - General General Appearance: Alert, Oriented x3, Cooperative, No acute distress - Head Head exam: Atraumatic, Normocephalic - Eye Eye exam: Normal appearance, PERRL - ENT Throat exam: Normal inspection. negative: Tonsillar erythema, Tonsillar exudate - Neck Neck exam: Normal inspection, Full ROM. negative: Tenderness - Respiratory Respiratory exam: Decreased breath sounds (at the bases R>L.). negative: Normal lung sounds bilaterally, Accessory muscle use, Rhonchi, Stridor, Wheezes (There is no wheezing.) - Cardiovascular Cardiovascular Exam: Regular rate, Normal rhythm, Normal heart sounds. negative: Systolic murmur - GI/Abdominal GI/Abdominal exam: Soft, Normal bowel sounds. negative: Tenderness - Extremities Extremities exam: Normal inspection, Full ROM, Normal capillary refill. negative: Tenderness - Neurological Neurological exam: Alert. negative: Motor sensory deficit Course Vital Signs 03/15/19 12:26 Temperature 97.9 F Pulse Rate 103 H Respiratory 24 Rate Blood Pressure 113/70 Pulse Ox 98 Medical Decision Making - Data Complexity MDM Data: Labs Ordered and/or Reviewed, X-Ray Ordered and/or Reviewed - Lab Data Result diagrams: 03/15/19 12:47 03/15/19 12:47 Lab Results 03/15/19 Range/Units 12:47 WBC 5.3 (4.2-12.2) K/uL RBC 4.72 (4.40-5.70) M/uL Hgb 13.2 L (14.0-18.0) gm/dl Hct 41.9 L (42.0-52.0) % MCV 88.8 (81-97) fl MCH 27.9 (27-33) pg MCHC 31.5 L (32-36) g/dl RDW 13.6 (11.5-14.5) % Plt Count 197 (130-400) K/uL MPV 8.8 (7.4-10.4) fl Eosinophils % Not Reportable Basophils % Not Reportable Absolute Neutrophils 3.00 - Radiology Data Radiology results: Report reviewed (CXR: Neg for acute changes.) Disposition Disposition: Discharge Clinical Impression: COPD exacerbation Disposition: Home, Self-Care Condition: (2) Stable Instructions: COPD (Chronic Obstructive Pulmonary Disease) (ED) Additional Instructions: Please use the Albuterol Nebulizer treatments every 4-6 hours as needed. Do not take your inhalled steroids more than twice a day. Take the Prednisone for 4 more days. Please see your family doctor in 1-2 weeks for recheck. Return to the ER for any worsening symptoms. Prescriptions: Albuterol Sulfate 0.083% [Neb] [Albuterol Sulfate] 3 ml NEB .EVERY 4-6 HOURS PRN #1 ml PRN Reason: Difficulty In Breathing Prednisone [Prednisone 20Mg] 40 mg PO DAILY #8 tab Forms: Patient Portal Access Time of Disposition: 14:04 Quality - Quality Measures Quality Measures: N/A - Blood Pressure Screening View Details: Yes Does Patient Have Any of the Following: No Blood Pressure Classification: Normal BP Reading Systolic Measurement: 113 Diastolic Measurement: 70 Screening for High Blood Pressure: < Normal BP, F/U Not Required > [G8783]
[2019-03-15 13:11] LABS: INR 1.1; PROTHROMBIN TIME (PATIENT) 11.6 SECONDS (9.5-12.1)
[2019-03-15 13:21] LABS: BLOOD UREA NITROGEN 13 mg/dL (8-23); CREATININE 1.2 mg/dL (0.7-1.2); EST GLOMERULAR FILTRATION RATE > 60 mL/min
[2019-03-15 13:24] LABS: GLUCOSE,RANDOM 91 mg/dL (74-109)
[2019-03-15 13:35] LABS: PLATELET ESTIMATE NORMAL (NORMAL)
[2019-03-15 13:36] LABS: TOXIC GRANULATION 1+
[2019-03-15] MEDS ORDERED: PREDNISONE 20 MG TAB PO ONE (13:37)
--- NOTE | 2019-03-15 13:47 | RADIOLOGY REPORT ---
EXAMINATION: Two View Chest Radiographs EXAM DATE: 03/15/2019 1:16 PM TECHNIQUE: Frontal and lateral views INDICATION: cough COMPARISON: 03/03/2017 ENCOUNTER: Not applicable FINDINGS: Cardiac size is normal. Linear opacities in the bilateral lower lungs compatible with atelectasis or scarring. Chronic deformities of right ribs. Calcified granuloma in the left midlung. Stable blunting of the right costophrenic angle. No pleural effusion. No focal consolidation. IMPRESSION: Stable chronic findings as detailed above. Dictated by: Rosa Elena Hannah MD on 03/15/2019 1:44 PM. .
[2019-03-15] MEDS ORDERED: IPRATROPIUM/ALBUTEROL (0.5MG/3MG) NEB INH SCH (14:00)
== END 2019-03-15 14:14 | disposition home or self-care (01) ==
LOC: ER 12:25
DX: J44.1 Chronic obstructive pulmonary disease with (acute) exacerbation (principal); R06.02 Shortness of breath; I48.91 Unspecified atrial fibrillation; I25.2 Old myocardial infarction; Z87.891 Personal history of nicotine dependence; Z79.01 Long term (current) use of anticoagulants
CPT/HCPCS: 99284 ×2; 85730; 85610; 80048; 84145; 85027; 71046; 94640; J7512

== ENCOUNTER 2019-03-26 08:20 | Emergency (ER) | payer MEDICARE, BC ==
--- NOTE | 2019-03-26 08:58 | Emergency Department Record ---
History of Present Illness - General Chief Complaint: Cough Stated Complaint: COUGH Time Seen by Provider: 03/26/19 08:34 Source: Patient, RN notes reviewed Mode of Arrival: Ambulatory - History of Present Illness Initial Comments: patient seen her on mar 15 and treated for copd with steroids and his cough is not getting better. Complaint: Cough Onset/Timin -: Week(s) - Related Data Home Medications Medication Instructions Recorded Confirmed Last Taken Pantoprazole Sodium [Protonix] 40 mg PO DAILY 03/26/19 03/26/19 03/26/19 Previous Rx's Medication Instructions Recorded Albuterol Sulfate 0.083% [Neb] 3 ml NEB .EVERY 4-6 HOURS PRN #1 ml 03/15/19 [Albuterol Sulfate] Levofloxacin [Levaquin Tab] 500 mg PO DAILY #7 tab 03/26/19 Prednisone [Prednisone 10Mg] 10 mg PO ASDIR #30 tab 03/26/19 Allergies Allergy/AdvReac Type Severity Reaction Status Date / Time latex Allergy RASH Verified 03/26/19 08:27 meperidine HCl [From Demerol] Allergy SWELLING Verified 03/26/19 08:27 (GENERAL) Penicillins Allergy RASH Verified 03/26/19 08:27 codeine AdvReac BODY ACHES Verified 03/26/19 08:27 Tetanus Vaccines and Toxoid AdvReac BODY ACHES Verified 03/26/19 08:27 [Tetanus Vaccines & Toxoid] Travel Screening - Travel/Exposure Within Last 30 Days Have you traveled within the last 30 days?: No - Travel/Exposure Within Last Year Have you traveled outside the [place] in the last year?: No - Additonal Travel Details Have you been exposed to anyone with a communicable illness?: No - Travel Symptoms Symptom Screening: None Review of Systems Reviewed: No additional complaints except as noted below Constitutional: Reports: As per HPI. Denies: Chills, Fever, Malaise, Night sweats, Weakness, Weight change Eyes: Reports: As per HPI. Denies: Eye discharge, Eye pain, Photophobia, Vision change ENT: Reports: As per HPI, Congestion. Denies: Dental pain, Ear pain, Epistaxis, Hearing loss, Throat pain Respiratory: Reports: As per HPI, Cough, Wheezes. Denies: Dyspnea, Hemoptysis, Stridor Cardiovascular: Reports: As per HPI. Denies: Arrhythmia, Chest pain, Dyspnea on exertion, Edema, Murmurs, Orthopnea, Palpitations, Paroxysmal nocturnal dyspnea, Rheumatic Fever, Syncope Endocrine: Reports: As per HPI. Denies: Fatigue, Heat or cold intolerance, Polydipsia, Polyuria Gastrointestinal: Reports: As per HPI. Denies: Abdominal pain, Constipation, Diarrhea, Hematemesis, Hematochezia, Melena, Nausea, Vomiting Genitourinary: Reports: As per HPI. Denies: Dysuria, Frequency, Hematuria, Incontinence, Retention, Testicular pain, Testicular mass, Urgency Musculoskeletal: Reports: As per HPI. Denies: Arthralgia, Back pain, Gout, Joint swelling, Myalgia, Neck pain Skin: Reports: As per HPI. Denies: Bruising, Change in color, Change in hair/nails, Lesions, Pruritus, Rash Neurological: Reports: As per HPI. Denies: Abnormal gait, Confusion, Headache, Numbness, Paresthesias, Seizure, Tingling, Tremors, Vertigo, Weakness Psychiatric: Reports: As per HPI. Denies: Anxiety, Auditory hallucinations, Depression, Homicidal thoughts, Suicidal thoughts, Visual hallucinations Hematological/Lymphatic: Reports: As per HPI. Denies: Anemia, Blood Clots, Easy bleeding, Easy bruising, Swollen glands Past Medical History - SOCIAL HISTORY Smoking Status: Former smoker Alcohol Use: None Drug Use: None - RESPIRATORY Hx Respiratory Disorders: Yes Hx Bronchitis: Yes Hx COPD: Yes Hx Pneumonia: Yes Comment:: 3L O2 at night - not currently using - CARDIOVASCULAR Hx Cardio Disorders: Yes Hx Abnormal EKG: Yes Hx Cardiac Cath: Yes Hx CHF: Yes Hx Edema: Yes Hx Heart Attack: Yes (after his stroke) Hx Hypotension: Yes Hx Irregular Heartbeat: Yes (A fib) Comment:: cardiac stents placed AND CURRENTLY ON COUMADIN - NEURO Hx Neuro Disorders: Yes Hx CVA: Yes (2003) Hx Weakness: Yes (LEFT SIDED WEAKNESS WITH SOME IMPROVEMENT AFTER) Comment:: WALKS WITH CANE - GI Hx GI Disorders: Yes Hx Reflux: Yes Hx of Polyps: Yes (POLYPS BENIGN) Comment:: STATES HAD BX DURING EGD AND HAD BLEED - Hx Genitourinary Disorders: Yes Hx Bladder Problem: Yes (UNABLE TO VOID) Hx Prostate Problems: Yes (BPH) Comment:: INTERMITTENT ISSUES WITH INABILITY TO VOID FOR LAST SEVERAL MONTHS - ENDOCRINE Hx Endocrine Disorders: No - MUSCULOSKELETAL Hx Musculoskeletal Disorders: Yes Hx Arthritis: Yes - PSYCH Hx Psych Problems: Yes Hx Anxiety: Yes Hx Depression: Yes - HEMATOLOGY/ONCOLOGY Hx Hematology/Oncology Disorders: Yes Hx Clotting Problems: Yes (TAKES COUMADIN) Hx Blood Transfusions: Yes Hx Blood Transfusion Reaction: No Family Medical History Any Significant Family History?: Yes Hx Alcohol Use: Father, Brother/Sister, Grandparents Hx Diabetes: Brother/Sister Hx Heart Disease: Mother, Brother/Sister Hx HTN: Father Hx Liver Disease: Brother/Sister Hx Stroke: Father Physical Exam - General General Appearance: Alert, Oriented x3, Cooperative, No acute distress - Head Head exam: Normal inspection - Eye Eye exam: Normal appearance, PERRL Pupils: Normal accommodation - ENT ENT exam: Normal exam, Mucous membranes moist, Normal external ear exam, Normal orophraynx, TM's normal bilaterally Ear exam: Normal external inspection. negative: External canal tenderness Nasal Exam: Normal inspection. negative: Discharge, Sinus tenderness Mouth exam: Normal external inspection, Tongue normal Teeth exam: Normal inspection. negative: Dental caries Throat exam: Normal inspection. negative: Tonsillar erythema, Tonsillar exudate - Neck Neck exam: Normal inspection, Full ROM. negative: Tenderness - Respiratory Respiratory exam: Normal lung sounds bilaterally. negative: Respiratory dis tress - Cardiovascular Cardiovascular Exam: Regular rate, Normal rhythm, Normal heart sounds - GI/Abdominal GI/Abdominal exam: Soft, Normal bowel sounds. negative: Tenderness - Rectal Rectal exam: Deferred - exam: Deferred - Extremities Extremities exam: Normal inspection, Full ROM, Normal capillary refill. negative: Tenderness - Back Back exam: Reports: Normal inspection, Full ROM. Denies: Muscle spasm, Rash noted, Tenderness - Neurological Neurological exam: Alert, Normal gait, Oriented X3, Reflexes normal - Psychiatric Psychiatric exam: Normal affect, Normal mood - Skin Skin exam: Dry, Intact, Normal color, Warm Course Vital Signs 03/26/19 08:34 Temperature 97.6 F Pulse Rate 89 Respiratory 24 Rate Blood Pressure 110/64 Pulse Ox 97 Medical Decision Making - Lab Data Result diagrams: 03/26/19 09:10 03/26/19 09:10 Disposition Clinical Impression: Bronchitis, COPD exacerbation Condition: (1) Good Instructions: Acute Bronchitis (ED), COPD (Chronic Obstructive Pulmonary Disease) (ED) Additional Instructions: follow up with [facility] in 2 days to 7 days drink fluids Prescriptions: Levofloxacin [Levaquin Tab] 500 mg PO DAILY #7 tab Prednisone [Prednisone 10Mg] 10 mg PO ASDIR #30 tab Forms: Patient Portal Access Time of Disposition: 11:50 Quality - Quality Measures Quality Measures: N/A - Blunt Head Trauma - Adult ICD10 Codes Entered: No - Blood Pressure Screening Does Patient Have Any of the Following: No Blood Pressure Classification: Normal BP Reading Systolic Measurement: 110 Diastolic Measurement: 64 Screening for High Blood Pressure: < Normal BP, F/U Not Required > [G8783]
[2019-03-26 09:17] LABS: ABSOLUTE NEUTROPHIL COUNT 6.79; HEMATOCRIT 41.6 % (42.0-52.0); HEMOGLOBIN 12.7 gm/dl (14.0-18.0); MEAN CELL VOLUME 90.2 fl (81-97); MEAN CORPUSCULAR HEMOGLOBIN 27.5 pg (27-33); MEAN CORPUSCULAR HGB CONC 30.5 g/dl (32-36); MEAN PLATELET VOLUME 8.2 fl (7.4-10.4); PLATELET COUNT 206 K/uL (130-400); RED BLOOD COUNT 4.61 M/uL (4.40-5.70); RED CELL DISTRIBUTION WIDTH 14.8 % (11.5-14.5); WHITE BLOOD COUNT W/O DIFF 10.1 K/uL (4.2-12.2)
[2019-03-26] MEDS: IPRATROPIUM/ALBUTEROL (0.5MG/3MG) NEB INH ONE (09:20)
[2019-03-26 09:27] LABS: BLOOD UREA NITROGEN 23 mg/dL (8-23); CREATININE 1.1 mg/dL (0.7-1.2); EST GLOMERULAR FILTRATION RATE > 60 mL/min
[2019-03-26 09:30] LABS: GLUCOSE,RANDOM 144 mg/dL (74-109)
[2019-03-26 09:41] LABS: PLATELET ESTIMATE NORMAL (NORMAL)
--- NOTE | 2019-03-26 10:20 | RADIOLOGY REPORT ---
EXAMINATION: Two View Chest Radiographs EXAM DATE: 03/26/2019 10:02 AM TECHNIQUE: Frontal and lateral views INDICATION: cough and sob COMPARISON: 03/15/2019 ENCOUNTER: Not applicable FINDINGS: Cardiomediastinal structures stable. No pulmonary consolidation or infiltration. Bibasilar scarring. Multiple old bilateral rib deformities. No pneumothorax or pleural effusion. IMPRESSION: No acute abnormality Dictated by: Raghav Conrad MD on 03/26/2019 10:12 AM. .
[2019-03-26] MEDS: METHYLPREDNISOLONE PF 125MG/VIAL IVP ONE (10:54)
== END 2019-03-26 12:01 | disposition home or self-care (01) ==
LOC: ER 08:20
DX: J44.1 Chronic obstructive pulmonary disease with (acute) exacerbation (principal); J20.9 Acute bronchitis, unspecified; J44.0 Chronic obstructive pulmonary disease with (acute) lower respiratory infection; I48.91 Unspecified atrial fibrillation; I25.2 Old myocardial infarction; I50.9 Heart failure, unspecified; Z79.01 Long term (current) use of anticoagulants
CPT/HCPCS: 71046; 80048; 85027; 94640; 96374; 99284; J2930

== ENCOUNTER 2019-05-13 10:39 | Emergency (ER) | payer MEDICARE, BC ==
[2019-05-13] MEDS ORDERED: IPRATROPIUM/ALBUTEROL (0.5MG/3MG) NEB INH ONE (11:32)
[2019-05-13] MEDS ORDERED: METHYLPREDNISOLONE PF 125MG/VIAL IVP ONE (11:32)
[2019-05-13 11:57] LABS: ABSOLUTE NEUTROPHIL COUNT 8.58; BASO % 0.2 % (0-6); EOS % 2.4 % (0-6); GRAN % 77.8 % (47-80); HEMATOCRIT 43.5 % (42.0-52.0); LYMPH % 10.8 % (16-45); MEAN CELL VOLUME 89.3 fl (81-97); MEAN CORPUSCULAR HEMOGLOBIN 28.7 pg (27-33); MEAN CORPUSCULAR HGB CONC 32.2 g/dl (32-36); MONO % 8.8 % (0-9); PLATELET COUNT 211 K/uL (130-400); RED BLOOD COUNT 4.87 M/uL (4.40-5.70); RED CELL DISTRIBUTION WIDTH 13.9 % (11.5-14.5)
[2019-05-13 12:12] LABS: INFLUENZA A NEGATIVE (NEGATIVE); INFLUENZA B NEGATIVE (NEGATIVE)
--- NOTE | 2019-05-13 12:35 | RADIOLOGY REPORT ---
EXAMINATION: Two View Chest Radiographs EXAM DATE: 05/13/2019 12:29 PM TECHNIQUE: Frontal and lateral views INDICATION: sob COMPARISON: 03/26/2019 ENCOUNTER: Not applicable FINDINGS: Cardiomediastinal structures stable. No pulmonary consolidation or infiltration. No pneumothorax or p leural effusion. Bibasilar scarring. Multiple bilateral rib deformities. Left upper lobe granuloma. IMPRESSION: No acute abnormality Dictated by: Raghav Conrad MD on 05/13/2019 12:32 PM. .
--- NOTE | 2019-05-13 13:12 | Emergency Department Record ---
History of Present Illness - General Chief Complaint: Shortness of breath Stated Complaint: NICOLAS Time Seen by Provider: 05/13/19 11:25 Source: Patient Mode of Arrival: Ambulatory Limitations: No limitations - History of Present Illness Initial Comments: [place] [facility] [place] [facility] [place]. when pt arrived he had sats of 96-97. he has a productive yellow cough. MD Complaint: "Asthma attack", Cough, Shortness of breath Onset/Timin -: Days(s) Consistency: Constant Improves With: Bronchodilators Known History Of: COPD Associated Symptoms: Cough, Sputum production - Related Data Home Oxygen Therapy: No Previous Rx's Medication Instructions Recorded Albuterol Sulfate 0.083% [Neb] 3 ml NEB .EVERY 4-6 HOURS PRN #1 ml 03/15/19 [Albuterol Sulfate] Cephalexin [Keflex] 500 mg PO BID #14 cap 05/13/19 Prednisone [Prednisone 20Mg] 20 mg PO Q12HR #8 tab 05/13/19 Allergies Allergy/AdvReac Type Severity Reaction Status Date / Time adhesive Allergy Unverified 05/13/19 10:17 latex Allergy RASH Unverified 05/13/19 10:17 meperidine HCl [From Demerol] Allergy SWELLING Unverified 05/13/19 10:17 (GENERAL) Penicillins Allergy RASH Unverified 05/13/19 10:17 codeine AdvReac BODY ACHES Unverified 05/13/19 10:17 Tetanus Vaccines and Toxoid AdvReac BODY ACHES Unverified 05/13/19 10:17 [Tetanus Vaccines & Toxoid] Travel Screening - Travel/Exposure Within Last 30 Days Have you traveled within the last 30 days?: No - Travel/Exposure Within Last Year Have you traveled outside the [place] in the last year?: No - Additonal Travel Details Have you been exposed to anyone with a communicable illness?: No - Travel Symptoms Symptom Screening: None Review of Systems Reviewed: No additional complaints except as noted below Constitutional: Reports: As per HPI. Denies: Chills, Fever, Malaise, Night sweats, Weakness, Weight change Eyes: Reports: As per HPI. Denies: Eye discharge, Eye pain, Photophobia, Vision change ENT: Reports: As per HPI, Congestion. Denies: Dental pain, Ear pain, Epistaxis, Hearing loss, Throat pain Respiratory: Reports: As per HPI, Cough, Dyspnea. Denies: Hemoptysis, Stridor, Wheezes Cardiovascular: Reports: As per HPI. Denies: Arrhythmia, Chest pain, Dyspnea on exertion, Edema, Murmurs, Orthopnea, Palpitations, Paroxysmal nocturnal dyspnea, Rheumatic Fever, Syncope Endocrine: Reports: As per HPI. Denies: Fatigue, Heat or cold intolerance, Polydipsia, Polyuria Gastrointestinal: Reports: As per HPI. Denies: Abdominal pain, Constipation, Diarrhea, Hematemesis, Hematochezia, Melena, Nausea, Vomiting Genitourinary: Reports: As per HPI. Denies: Dysuria, Frequency, Hematuria, Incontinence, Retention, Testicular pain, Testicular mass, Urgency Musculoskeletal: Reports: As per HPI. Denies: Arthralgia, Back pain, Gout, Joint swelling, Myalgia, Neck pain Skin: Reports: As per HPI. Denies: Bruising, Change in color, Change in hair/nails, Lesions, Pruritus, Rash Neurological: Reports: As per HPI. Denies: Abnormal gait, Confusion, Headache, Numbness, Paresthesias, Seizure, Tingling, Tremors, Vertigo, Weakness Psychiatric: Reports: As per HPI. Denies: Anxiety, Auditory hallucinations, Depression, Homicidal thoughts, Suicidal thoughts, Visual hallucinations Hematological/Lymphatic: Reports: As per HPI. Denies: Anemia, Blood Clots, Easy bleeding, Easy bruising, Swollen glands Past Medical History - SOCIAL HISTORY Smoking Status: Former smoker Alcohol Use: None Drug Use: None - RESPIRATORY Hx Respiratory Disorders: Yes Hx Bronchitis: Yes Hx COPD: Yes Hx Pneumonia: Yes Comment:: 3L O2 at night - not currently using - CARDIOVASCULAR Hx Cardio Disorders: Yes Hx Abnormal EKG: Yes Hx Cardiac Cath: Yes Hx CHF: Yes Hx Edema: Yes Hx Heart Attack: Yes (after his stroke) Hx Hypotension: Yes Hx Irregular Heartbeat: Yes (A fib) Comment:: cardiac stents placed AND CURRENTLY ON COUMADIN - NEURO Hx Neuro Disorders: Yes Hx CVA: Yes (2003) Hx Weakness: Yes (LEFT SIDED WEAKNESS WITH SOME IMPROVEMENT AFTER) Comment:: WALKS WITH CANE - GI Hx GI Disorders: Yes Hx Reflux: Yes Hx of Polyps: Yes (POLYPS BENIGN) Comment:: STATES HAD BX DURING EGD AND HAD BLEED - Hx Genitourinary Disorders: Yes Hx Bladder Problem: Yes (UNABLE TO VOID) Hx Prostate Problems: Yes (BPH) Comment:: INTERMITTENT ISSUES WITH INABILITY TO VOID FOR LAST SEVERAL MONTHS - ENDOCRINE Hx Endocrine Disorders: No - MUSCULOSKELETAL Hx Musculoskeletal Disorders: Yes Hx Arthritis: Yes - PSYCH Hx Psych Problems: Yes Hx Anxiety: Yes Hx Depression: Yes - HEMATOLOGY/ONCOLOGY Hx Hematology/Oncology Disorders: Yes Hx Clotting Problems: Yes (TAKES COUMADIN) Hx Blood Transfusions: Yes Hx Blood Transfusion Reaction: No Family Medical History Any Significant Family History?: No Hx Alcohol Use: Father, Brother/Sister, Grandparents Hx Diabetes: Brother/Sister Hx Heart Disease: Mother, Brother/Sister Hx HTN: Father Hx Liver Disease: Brother/Sister Hx Stroke: Father Physical Exam - General General Appearance: Alert, Oriented x3, Cooperative, Mild distress - Head Head exam: Normal inspection - Eye Eye exam: Normal appearance, PERRL, EOMI Pupils: Normal accommodation - ENT ENT exam: Normal exam, Mucous membranes moist, Normal external ear exam, Normal orophraynx Ear exam: Normal external inspection. negative: External canal tenderness Nasal Exam: Normal inspection. negative: Discharge, Sinus tenderness Mouth exam: Normal external inspection, Tongue normal Teeth exam: Normal inspection. negative: Dental caries Throat exam: Normal inspection. negative: Tonsillar erythema, Tonsillar exudate - Neck Neck exam: Normal inspection, Full ROM. negative: Tenderness - Respiratory Respiratory exam: Wheezes. negative: Respiratory distress - Cardiovascular Cardiovascular Exam: Regular rate, Normal rhythm, Normal heart sounds - GI/Abdominal GI/Abdominal exam: Soft, Normal bowel sounds. negative: Tenderness - Rectal Rectal exam: Deferred - exam: Deferred - Extremities Extremities exam: Normal inspection, Full ROM, Normal capillary refill. negative: Tenderness - Back Back exam: Reports: Normal inspection, Full ROM. Denies: Muscle spasm, Rash noted, Tenderness - Neurological Neurological exam: Alert, CN II-XII intact, Normal gait, Oriented X3 - Psychiatric Psychiatric exam: Normal affect, Normal mood - Skin Skin exam: Dry, Intact, Normal color, Warm Course Vital Signs 05/13/19 05/13/19 11:04 11:38 Temperature 97.4 F L Pulse Rate 89 Pulse Rate [ 99 H Pulse Ox Probe] Respiratory 24 20 Rate Blood Pressure 123/83 [Left] Pulse Ox 97 100 - Reevaluation(s) Reevaluation #1: 05/13/19 13:15 pt is feeling better. Medical Decision Making - Lab Data Result diagrams: 05/13/19 11:42 Lab Results 05/13/19 05/13/19 Range/Units 11:42 11:42 WBC 11.0 (4.2-12.2) K/uL RBC 4.87 (4.40-5.70) M/uL Hgb 14.0 (14.0-18.0) gm/dl Hct 43.5 (42.0-52.0) % MCV 89.3 (81-97) fl MCH 28.7 (27-33) pg MCHC 32.2 (32-36) g/dl RDW 13.9 (11.5-14.5) % Plt Count 211 (130-400) K/uL MPV 9.0 (7.4-10.4) fl Gran % 77.8 (47-80) % Lymphocytes % 10.8 L (16-45) % Monocytes % 8.8 (0-9) % Eosinophils % 2.4 (0-6) % Basophils % 0.2 (0-6) % Absolute Neutrophils 8.58 Influenza Type A Ag Negative (NEGATIVE) Influenza Type B Ag Negative (NEGATIVE) Disposition Disposition: Discharge Clinical Impression: Asthmatic bronchitis Qualifiers: Asthma severity: moderate Asthma persistence: persistent Asthma complication t ype: with acute exacerbation Qualified Code(s): J45.41 - Moderate persistent asthma with (acute) exacerbation Disposition: Home, Self-Care Condition: (1) Good Instructions: Asthma (ED), Wheezing (ED) Additional Instructions: follow up with family doctor. return sooner if worse. use inhaler as needed Prescriptions: Prednisone [Prednisone 20Mg] 20 mg PO Q12HR #8 tab Cephalexin [Keflex] 500 mg PO BID #14 cap Quality - Quality Measures Quality Measures: N/A - Blunt Head Trauma - Adult ICD10 Codes Entered: Yes - Blood Pressure Screening Does Patient Have Any of the Following: No Blood Pressure Classification: Pre-Hypertensive BP Reading Systolic Measurement: 123 Diastolic Measurement: 83 Screening for High Blood Pressure: < Pre-Hypertensive BP, F/U Documented > [G8950] Pre-Hypertensive Follow-up Interventions: Follow-up with rescreen every year.
== END 2019-05-13 13:32 | disposition home or self-care (01) ==
LOC: ER 10:39
DX: J45.41 Moderate persistent asthma with (acute) exacerbation (principal); J44.9 Chronic obstructive pulmonary disease, unspecified; F17.210 Nicotine dependence, cigarettes, uncomplicated; Z99.81 Dependence on supplemental oxygen; I25.2 Old myocardial infarction
CPT/HCPCS: 71046; 85025; 87400; 94640; 96374; 99284; J2930